=== PATIENT | female | born 1995 | race Caucasian/White ===

== ENCOUNTER 2016-05-05 11:13 | Emergency (ER) | payer OTHER ==
[2016-05-05 11:24] VITALS: O2SAT 99
[2016-05-05 11:52] LABS: Collection Type CCMS
[2016-05-05 11:53] LABS: COMPLETE URINE MICROSCOPIC? YES
[2016-05-05 12:03] LABS: BASOPHIL % 0.4 % (0.0-0.4); Eosinophil % 7.8 % (0.00-5.0); Granulocytes % 65.7 % (36.0-66.0); Lymphocytes % 18.1 % (24.0-44.0); Mean Cell Volume 84.9 fl (78-100); Mean Corpuscular Hemoglobin 28.4 pg (26-32); Mean Platelet Volume 9.7 fl (6-9.5); Platelet Count 247 K/mm3 (150-450); Red Blood Count 4.76 M/mm3 (4.1-5.4); Red Cell Distribution Width 13.8 % (11.5-14.0); White Blood Count 5.5 K/mm3 (4.0-10.5)
--- NOTE | 2016-05-05 12:22 | XRAY ---
Indication: Spotting and cramping. Two-dimensional transvaginal early OB ultrasound performed. Comparison: None for this . There is a single intrauterine gestational sac with presence of a single pole. The mean crown-rump length measures 1.02 cm corresponding to 7 weeks 1 day. heart rate is 124 bpm. No abnormal subchorionic fluid collection. Left and right ovaries unremarkable. No suspicious adnexal mass or free fluid. Impression: Single viable intrauterine measuring 7 weeks 1 day. Expected date confinement is December 21, 2016.
[2016-05-05 12:27] LABS: Bacteria FEW /HPF (NEGATIVE); Epithelial Cells FEW /HPF (FEW); Mucus MODERATE /HPF (NEGATIVE); WBC 0-2 /HPF (0-5)
[2016-05-05 12:40] LABS: ALBUMIN 3.6 g/dL (3.4-5.0); ALKALINE PHOSPHATASE 85 U/L (46-116); ANION GAP 13.7 MEQ/L (5-15); BILIRUBIN,TOTAL 0.3 mg/dL (0.2-1.0); BLOOD UREA NITROGEN 9 mg/dL (9-20); CHLORIDE 103 mEq/L (98-107); Carbon Dioxide 25.9 mEq/L (21-32); Glucose 113 MG/DL (70-110); HCG, Quantitative (Inhouse) 45406 IU/L (0-6); Potassium 3.4 mEq/L (3.5-5.1); SGOT/AST 32 U/L (15-37); SGPT/ALT 26 U/L (12-78); SODIUM 139 mEq/L (136-145); Total Protein 7.6 gm/dL (6.4-8.2)
[2016-05-05] MEDS ORDERED: Klor Con 10 MEQ PO ONE ×2 (12:51→12:53)
[2016-05-05] MEDS ORDERED: Macrobid 100MG Capsule PO ONE (12:52)
[2016-05-05] MEDS ORDERED: Macrobid 100MG Capsule ONE (12:54)
--- NOTE | 2016-05-05 12:58 | ERPHSYRPT ---
- History of Present Illness Time Seen by Provider: 05/05/16 11:15 Source: patient Exam Limitations: no limitations Patient Subjective Stated Complaint: cramping and vaginal bleeding Triage Nursing Assessment: pt has had vaginal cramping and bleeding since yeserday, previous miscarriage states she is 9 weeks Timing/Duration: yesterday Activites at Onset: none Quality: cramping Onset Location: suprapubic, abdominal pain Pain Radiation: periumbilical, suprapubic Severity of Pain-Max: moderate Severity of Pain-Current: moderate Prior abdominal problems: other (G) Modifying Factors: Improves With: nothing Associated Symptoms: other (vaginal spotting /bleeding on tissue wipe) Allergies/Adverse Reactions: Penicillins Allergy (Verified 04/27/15 13:39) Hx Tetanus, Diphtheria Vaccination/Date Given: Yes Hx Influenza Vaccination/Date Given: No Hx Pneumococcal Vaccination/Date Given: No - Review of Systems Constitutional: No Symptoms Eyes: No Symptoms Ears, Nose, & Throat: No Symptoms Respiratory: No Symptoms Cardiac: No Symptoms Abdominal/Gastrointestinal: Abdominal Pain Genitourinary Symptoms: Vaginal Bleeding Musculoskeletal: No Symptoms Skin: No Symptoms Neurological: No Symptoms Psychological: No Symptoms Endocrine: No Symptoms Hematologic/Lymphatic: No Symptoms Immunological/Allergic: No Symptoms - Past Medical History Pertinent Past Medical History: No Neurological History: Migraines ENT History: No Pertinent History Cardiac History: No Pertinent History Respiratory History: No Pertinent History Endocrine Medical History: No Pertinent History Musculoskeletal History: No Pertinent History GI Medical History: No Pertinent History History: No Pertinent History Psycho-Social History: Depression Female Reproductive Disorders: No Pertinent History Other Medical History: seasonal allergy - Past Surgical History Past Surgical History: Yes Neuro Surgical History: No Pertinent History Cardiac: No Pertinent History Respiratory: No Pertinent History Gastrointestinal: Cholecystectomy Genitourinary: No Pertinent History Musculoskeletal: No Pertinent History Female Surgical History: No Pertinent History - Social History Smoking Status: Never smoker How long have you smoked: 5 Exposure to second hand smoke: No Drug Use: none Patient Lives Alone: No - Female History Hx Last Menstrual Period: 03/06/16 - Nursing Vital Signs Nursing Vital Signs: Initial Vital Signs Temperature 99.1 F Temperature Source Oral Pulse Rate 101 Respiratory Rate 16 Blood Pressure 127/82 Pain Intensity 4 - Physical Exam General Appearance: mild distress Eye Exam: PERRL/EOMI, eyes nml inspection Ears, Nose, Throat Exam: normal ENT inspection, pharynx normal Neck Exam: normal inspection, non-tender, supple, full range of motion Respiratory Exam: normal breath sounds, lungs clear Cardiovascular Exam: regular rate/rhythm, normal heart sounds, normal peripheral pulses Gastrointestinal/Abdomen Exam: soft Pelvic Exam: deferred Back Exam: normal inspection, normal range of motion Extremity Exam: normal inspection, normal range of motion, pelvis stable Neurologic Exam: alert, oriented x 3, cooperative Skin Exam: normal color, warm, dry SpO2 Interpretation: normal SpO2: 99 Oxygen Delivery: Room Air - Course Nursing assessment & vital signs reviewed: Yes - Radiology Ultrasound Exam OB Ultrasound: discussed w/radiologist (7 week 1 day IUP with HR 126) Ordered Tests: Active Orders 24 hr Category Date Time Status IV Insertion STAT Care 05/05/16 11:27 Active OB <14 WKS 1ST GESTATION [US] Stat Exams 05/05/16 11:37 Completed CBC W DIFF Stat Lab 05/05/16 11:56 Completed CMP Stat Lab 05/05/16 11:56 Completed HCG, Quantitative (Inhouse) Stat Lab 05/05/16 11:56 Completed HCG,QUALITATIVE URINE Stat Lab 05/05/16 11:41 Completed UA W/ MICROSCOPIC Stat Lab 05/05/16 11:41 Completed Medication Summary Discontinued Medications Generic Name Dose Route Start Last Admin Trade Name Freq PRN Reason Stop Dose Admin Nitrofurantoin Macrocrystals 100 mg 05/05/16 12:52 Macrobid 100mg Capsule PO 05/05/16 12:53 STAT ONE Potassium Chloride 40 meq 05/05/16 12:51 Klor Con 10 Meq PO 05/05/16 12:52 STAT ONE Lab/Rad Data: Laboratory Result Diagrams 05/05/16 11:56 05/05/16 11:56 Laboratory Results 05/05/16 05/05/16 05/05/16 Range/Units 11:56 11:56 11:44 WBC 5.5 (4.0-10.5) K/mm3 RBC 4.76 (4.1-5.4) M/mm3 Hgb 13.5 (12.0-16.0) gm/dl Hct 40.4 (35-47) % MCV 84.9 (78-100) fl MCH 28.4 (26-32) pg MCHC 33.4 (32-36) g/dl RDW 13.8 (11.5-14.0) % Plt Count 247 (150-450) K/mm3 MPV 9.7 H (6-9.5) fl Gran % 65.7 (36.0-66.0) % Lymphocytes % 18.1 L (24.0-44.0) % Monocytes % 8.0 (0.0-12.0) % Eosinophils % 7.8 H (0.00-5.0) % Basophils % 0.4 (0.0-0.4) % Basophils # 0.02 (0-0.4) Sodium 139 (136-145) mEq/L Potassium 3.4 L (3.5-5.1) mEq/L Chloride 103 (98-107) mEq/L Carbon Dioxide 25.9 (21-32) mEq/L Anion Gap 13.7 (5-15) MEQ/L BUN 9 (9-20) mg/dL Creatinine 0.82 (0.55-1.30) mg/dl Estimated GFR > 60 ML/MIN Glucose 113 H (70-110) MG/DL Calcium 8.9 (8.5-10.1) mg/dL Total Bilirubin 0.3 (0.2-1.0) mg/dL AST 32 (15-37) U/L ALT 26 (12-78) U/L Alkaline Phosphatase 85 (46-116) U/L Serum Total Protein 7.6 (6.4-8.2) gm/dL Albumin 3.6 (3.4-5.0) g/dL Beta HCG, Quant 07555 H (0-6) IU/L Ur Collection Type Urine Color (YELLOW) Urine Appearance (CLEAR) Urine pH (5-6) Ur Specific [place] (1.005-1.025) Urine Protein (Negative) Urine Glucose (UA) (NEGATIVE) mg/dL Urine Ketones (NEGATIVE) Urine Nitrite (NEGATIVE) Urine Bilirubin (NEGATIVE) Urine Urobilinogen (0-1) mg/dL Urine WBC (Auto) (NEGATIVE) Urine RBC (Auto) (0-5) Frank/ul Urine Microscopic RBC (0-2) /HPF Urine Microscopic WBC (0-5) /HPF Ur Epithelial Cells (FEW) /HPF Urine Bacteria (NEGATIVE) /HPF Urine Mucus (NEGATIVE) /HPF Urine HCG, Qual (Negative) Specimen Received ABO Group O Rh Factor POSITIVE Antibody Screen NEGATIVE (NEGATIVE) 05/05/16 05/05/16 Range/Units 11:41 11:41 WBC (4.0-10.5) K/mm3 RBC (4.1-5.4) M/mm3 Hgb (12.0-16.0) gm/dl Hct (35-47) % MCV (78-100) fl MCH (26-32) pg MCHC (32-36) g/dl RDW (11.5-14.0) % Plt Count (150-450) K/mm3 MPV (6-9.5) fl Gran % (36.0-66.0) % Lymphocytes % (24.0-44.0) % Monocytes % (0.0-12.0) % Eosinophils % (0.00-5.0) % Basophils % (0.0-0.4) % Basophils # (0-0.4) Sodium (136-145) mEq/L Potassium (3.5-5.1) mEq/L Chloride (98-107) mEq/L Carbon Dioxide (21-32) mEq/L Anion Gap (5-15) MEQ/L BUN (9-20) mg/dL Creatinine (0.55-1.30) mg/dl Estimated GFR ML/MIN Glucose (70-110) MG/DL Calcium (8.5-10.1) mg/dL Total Bilirubin (0.2-1.0) mg/dL AST (15-37) U/L ALT (12-78) U/L Alkaline Phosphatase (46-116) U/L Serum Total Protein (6.4-8.2) gm/dL Albumin (3.4-5.0) g/dL Beta HCG, Quant (0-6) IU/L Ur Collection Type CCMS Urine Color YELLOW (YELLOW) Urine Appearance CLEAR (CLEAR) Urine pH 6.0 (5-6) Ur Specific [place] >=1.030 (1.005-1.025) Urine Protein 30 (Negative) Urine Glucose (UA) NEGATIVE (NEGATIVE) mg/dL Urine Ketones NEGATIVE (NEGATIVE) Urine Nitrite NEGATIVE (NEGATIVE) Urine Bilirubin SMALL (NEGATIVE) Urine Urobilinogen 0.2 (0-1) mg/dL Urine WBC (Auto) NEGATIVE (NEGATIVE) Urine RBC (Auto) MODERATE (0-5) Frank/ul Urine Microscopic RBC 2-5 (0-2) /HPF Urine Microscopic WBC 0-2 (0-5) /HPF Ur Epithelial Cells FEW (FEW) /HPF Urine Bacteria FEW (NEGATIVE) /HPF Urine Mucus MODERATE (NEGATIVE) /HPF Urine HCG, Qual POSITIVE (Negative) Specimen Received 1145 05/05/16 ABO Group Rh Factor Antibody Screen (NEGATIVE) - Progress Progress: improved Air Movement: good Blood Culture(s) Obtained: No Antibiotics given: Yes Counseled pt/family regarding: lab results, diagnosis, need for follow-up (OB 1 week), rad results - Departure Time of Disposition: 13:00 Departure Disposition: Home Clinical Impression: Threatened miscarriage Condition: Stable Critical Care Time: No
[2016-05-05 13:05] VITALS: BP 128/84; PULSE 96
== END 2016-05-05 13:11 | disposition home or self-care (01) ==
LOC: ED 11:13
DX: O20.0 Threatened abortion (principal)
CPT/HCPCS: 36000; 36415; 76801; 80053; 81000; 84702; 84703; 85025; 86850; 86900; 86901; 99283

== ENCOUNTER 2016-09-24 21:31 | Observation (INO) | payer OTHER ==
[2016-09-24 22:42] LABS: COMPLETE URINE MICROSCOPIC? YES; Collection Type CLEAN CATCH
[2016-09-24 22:43] LABS: Bacteria RARE /HPF (NEGATIVE); Epithelial Cells FEW /HPF (FEW); WBC 0-2 /HPF (0-5)
[2016-09-24] MEDS ORDERED: TYLENOL EXTRA STRENGTH 500 MG PO PRN (23:01)
[2016-09-24 23:32] LABS: BASOPHIL % 0.1 % (0.0-0.4); Eosinophil % 2.8 % (0.00-5.0); Lymphocytes % 17.2 % (24.0-44.0); Mean Cell Volume 87.9 fl (78-100); Mean Corpuscular Hemoglobin 29.2 pg (26-32); Mean Platelet Volume 9.8 fl (6-9.5); Monocytes % 5.9 % (0.0-12.0); Platelet Count 264 K/mm3 (150-450); Red Blood Count 3.97 M/mm3 (4.1-5.4); Red Cell Distribution Width 14.2 % (11.5-14.0); White Blood Count 9.7 K/mm3 (4.0-10.5)
[2016-09-24 23:57] LABS: ALBUMIN 2.7 g/dL (3.4-5.0); ALKALINE PHOSPHATASE 91 U/L (46-116); ANION GAP 11.7 MEQ/L (5-15); BLOOD UREA NITROGEN 9 mg/dL (9-20); CHLORIDE 105 mEq/L (98-107); Carbon Dioxide 25.9 mEq/L (21-32); Glucose 95 MG/DL (70-110); Potassium 3.8 mEq/L (3.5-5.1); SGOT/AST 16 U/L (15-37); SGPT/ALT 20 U/L (12-78); SODIUM 139 mEq/L (136-145); Total Protein 6.8 gm/dL (6.4-8.2)
[2016-09-25] MEDS ORDERED: SUBLIMAZE 100 MCG/2 ML IV PRN (00:09)
[2016-09-25] MEDS ORDERED: Zofran 4 MG/2 ML VIAL IV PRN (00:10)
[2016-09-25] MEDS ORDERED: Lactated Ringers 1,000 ML IV SCH (00:30)
--- NOTE | 2016-09-25 10:53 | XRAY ---
Indication: Right lower quadrant pain. 2-dimensional OB ultrasound performed. Comparison: July 29, 2016. Again there is a single viable intrauterine currently in cephalic presentation. heart rate 145 bpm. Normal three-vessel cord, cord insertion, and four-chamber heart previously documented. Visualized stomach, kidneys, and bladder are unremarkable. Placenta is again anterior without abruption/previa. BPD measures 6.91 cm corresponding to 27 weeks 5 days. HC measures 24.59 cm corresponding to 26 weeks 5 day. AC measures 23.66 cm corresponding to 28 weeks 0 days. FL measures 5.54 cm corresponding to 29 weeks 1 days. FLORIAN is 13.9 cm. Impression: Again single viable intrauterine with mean gestational age 27 weeks 6 days. Normal progression of . No new/acute findings.
--- NOTE | 2016-09-25 10:55 | XRAY ---
Indication: Right lower quadrant pain. Two-dimensional renal sonogram performed. Comparison: None Both kidneys are normal in reniform shape with normal color perfusion. Right kidney measures 10.8 x 5.4 x 5.0 cm and the left measures 11.9 x 3.8 x 5.8 cm. No suspicious solid/cystic mass or perinephric fluid. Cortical medullary differentiation maintained without cortical thinning. Images of the urinary bladder unremarkable. Bilateral ureteral jets documented. Impression: Negative renal sonogram.
[2016-09-25 12:11] VITALS: BP 126/56; PULSE 90
== END 2016-09-25 10:30 | disposition home or self-care (01) ==
LOC: OB 21:31 → UNDOADMOB 21:31
PROVIDERS: ADMIT Family Medicine; ATTEND Family Medicine
DX: Z34.82 Encounter for supervision of other normal pregnancy, second trimester (principal)
CPT/HCPCS: 36415; 76770; 76805; 80053; 80307; 81000; 85025; G0378; J3010; A9270-GY

== ENCOUNTER 2016-10-15 12:31 | Observation (INO) | payer OTHER ==
[2016-10-15 13:17] VITALS: BP 120/79; PULSE 107
== END 2016-10-15 14:30 | disposition home or self-care (01) ==
LOC: OB 12:31
PROVIDERS: ADMIT Family Medicine; ATTEND Family Medicine
DX: Z34.83 Encounter for supervision of other normal pregnancy, third trimester (principal)
CPT/HCPCS: 59025; G0378

== ENCOUNTER 2016-11-13 02:57 | Observation (INO) | payer OTHER ==
[2016-11-13 03:44] VITALS: BP 121/72; PULSE 100
[2016-11-13 03:45] VITALS: O2SAT 97
[2016-11-13 03:47] LABS: Bacteria FEW /HPF (NEGATIVE); Bilirubin NEGATIVE (NEGATIVE); Blood NEGATIVE Ery/ul (0-5); COMPLETE URINE MICROSCOPIC? YES; Collection Type CCMS; Epithelial Cells MODERATE /HPF (FEW); Glucose NEGATIVE (NEGATIVE); Leukocyte Esterase 1+ (NEGATIVE); WBC 0-2 /HPF (0-5)
== END 2016-11-13 04:55 | disposition home or self-care (01) ==
LOC: OB 02:57
PROVIDERS: ADMIT Family Medicine; ATTEND Family Medicine
DX: Z34.83 Encounter for supervision of other normal pregnancy, third trimester (principal)
CPT/HCPCS: 80307; 81000; G0378

== ENCOUNTER 2016-12-08 05:40 | Observation (INO) | payer OTHER ==
[2016-12-08 06:50] LABS: Bilirubin NEGATIVE (NEGATIVE); Blood NEGATIVE Ery/ul (0-5); COMPLETE URINE MICROSCOPIC? NO; Collection Type VOID; Glucose NEGATIVE (NEGATIVE); Leukocyte Esterase NEGATIVE (NEGATIVE)
[2016-12-08 08:32] VITALS: BP 117/64; PULSE 81
== END 2016-12-08 08:59 | disposition home or self-care (01) ==
LOC: OB 05:40 → UNDOADMOB 05:40 → UNDODISOB 08:59
PROVIDERS: ADMIT Family Medicine; ATTEND Family Medicine
DX: Z34.83 Encounter for supervision of other normal pregnancy, third trimester (principal)
CPT/HCPCS: 80307; 81002; G0378

== ENCOUNTER 2016-12-16 06:04 | Inpatient (IN) | payer OTHER ==
[2016-12-16] MEDS ORDERED: XYLOCAINE 1% HCL 20 ML MDV IJ PRN (08:24)
[2016-12-16 08:57] LABS: BASOPHIL % 0.2 % (0.0-0.4); Eosinophil % 2.1 % (0.00-5.0); Granulocytes % 77.8 % (36.0-66.0); Lymphocytes % 14.8 % (24.0-44.0); Mean Cell Volume 86.8 fl (78-100); Mean Corpuscular Hemoglobin 28.6 pg (26-32); Mean Platelet Volume 9.9 fl (6-9.5); Monocytes % 5.1 % (0.0-12.0); Platelet Count 266 K/mm3 (150-450); Red Blood Count 4.23 M/mm3 (4.1-5.4); Red Cell Distribution Width 14.4 % (11.5-14.0); White Blood Count 12.1 K/mm3 (4.0-10.5)
[2016-12-16] MEDS ORDERED: Lactated Ringers 1,000 ML IV ONE (13:02)
[2016-12-16] MEDS ORDERED: Ephedrine Sulfate 50 MG/ML IV PRN (13:02)
[2016-12-16] MEDS ORDERED: OB EPIDURAL NAROPIN/SUFENTANIL IN NACL EPIDURAL PRN (13:02)
[2016-12-16] MEDS: Lactated Ringers 1,000 ML IV SCH (14:41)
[2016-12-16] MEDS ORDERED: BRETHINE 1 MG/ML SQ PRN (15:41)
[2016-12-16] MEDS ORDERED: PITOCIN 30 UNITS/ LR 500 ML 500 ML IV SCH (16:00)
[2016-12-16] MEDS ORDERED: MOTRIN 400 MG PO PRN (22:58)
[2016-12-16] MEDS ORDERED: Ambien 10 MG PO PRN (22:58)
[2016-12-16] MEDS ORDERED: TUCKS TP PRN (22:58)
[2016-12-16] MEDS ORDERED: Dulcolax 10 MG SUPP PR PRN (22:58)
[2016-12-16] MEDS ORDERED: Dermoplast Spray TP PRN (22:58)
[2016-12-16] MEDS ORDERED: CORTISONE 1% CREAM TP PRN (22:58)
[2016-12-16] MEDS ORDERED: Anucort-HC SUPPOSITORY PR PRN (22:58)
[2016-12-16] MEDS ORDERED: Mylicon 80MG PO PRN (22:58)
[2016-12-16] MEDS ORDERED: LANSINOH 40 GM TOP PRN (22:58)
[2016-12-16] MEDS: TYLENOL EXTRA STRENGTH 500 MG PO PRN (23:15)
[2016-12-17 03:27] VITALS: O2SAT 99
[2016-12-17 04:28] LABS: BASOPHIL % 0.1 % (0.0-0.4); Eosinophil % 0.7 % (0.00-5.0); Lymphocytes % 9.8 % (24.0-44.0); Mean Cell Volume 87.8 fl (78-100); Mean Platelet Volume 9.8 fl (6-9.5); Monocytes % 4.4 % (0.0-12.0); Platelet Count 257 K/mm3 (150-450); Red Blood Count 3.93 M/mm3 (4.1-5.4); Red Cell Distribution Width 14.4 % (11.5-14.0); White Blood Count 14.4 K/mm3 (4.0-10.5)
[2016-12-17 04:29] LABS: Mean Corpuscular Hemoglobin 28.7 pg (26-32)
[2016-12-17] MEDS: TYLENOL EXTRA STRENGTH 500 MG PO PRN (04:33)
[2016-12-17] MEDS ORDERED: M-M-R II Vaccine With Diluent SQ ONE (10:00)
[2016-12-17] MEDS ORDERED: Adacel Vial IM ONE (10:00)
[2016-12-17] MEDS: Colace 100 MG PO SCH ×2 (10:43→21:02)
[2016-12-17] MEDS: FERREX 150 PO SCH (10:43)
[2016-12-17] MEDS: Lactated Ringers 1,000 ML IV SCH ×2 (10:58→10:59)
[2016-12-17] MEDS: PITOCIN 30 UNITS/ LR 500 ML 500 ML IV SCH (10:58)
[2016-12-17] MEDS: NORCO 5/325 MG PO PRN (20:15)
[2016-12-17] MEDS ORDERED: Pepcid 20 MG PO ONE (20:45)
[2016-12-18] MEDS: NORCO 5/325 MG PO PRN (02:16)
--- NOTE | 2016-12-18 07:50 | PCM.DS ---
Discharge Summary Date of Admission: 12/16/16 06:04 Admitting Physician: YFN VENEGAS Consults: Consults on Case 12/16/16 13:03 Notify Anesthesia Provider PRN Primary Care Provider: YFN VENEGAS Allergies Allergies Penicillins Allergy (Verified 11/13/16 03:23) [facility] Summary - Hospital Course Hospital Course: patient doing well at this time, mild lochia. pain controlled, tolerating po. had on 12/16, no complications. and well bonded with . - Vitals & Intake/Output Vital Signs: Vital Signs Temperature 97.8 F 12/17/16 20:00 Pulse Rate 84 12/17/16 20:00 Respiratory Rate 16 12/17/16 20:00 Blood Pressure 110/74 12/17/16 20:00 O2 Sat by Pulse Oximetry 99 12/16/16 23:04 Intake & Output: Intake & Output 12/15/16 12/16/16 12/17/16 12/18/16 11:59 11:59 11:59 11:59 Intake Total 500 1200 Output Total 400 Balance 100 1200 Weight 126.099 kg - Lab Result Diagrams: 12/17/16 04:23 Micro Results-Entire Visit: Microbiology 12/16/16 15:20 Urine Culture - Final Catherized NO GROWTH Discharge Exam General Appearance: no apparent distress, alert Skin Exam: normal color, warm, dry Respiratory Exam: normal breath sounds, lungs clear, No respiratory distress Cardiovascular Exam: regular rate/rhythm, normal heart sounds Gastrointestinal/Abdomen Exam: soft, No tenderness, No mass Extremity Exam: normal inspection, normal range of motion Final Diagnosis/Problem List - Final Discharge Diagnosis/Problem (1) Normal vaginal delivery Current Visit: Yes Status: Acute - Discharge Disposition: Home, Self-Care Condition: Stable Prescriptions: Continue Vits W-Ca,Fe,FA(<1Mg) [] 1 tab PO DAILY Acetaminophen [Tylenol] 650 mg PO Q4-6HPRN PRN PRN Reason: Pain Follow up with: YFN VENEGAS MD [Primary Care Provider] - 1 Week
[2016-12-18] MEDS: Colace 100 MG PO SCH (11:31)
[2016-12-18] MEDS: FERREX 150 PO SCH (11:31)
[2016-12-18] MEDS: TYLENOL EXTRA STRENGTH 500 MG PO PRN (12:59)
[2016-12-18 23:00] VITALS: BP 138/69; PULSE 83
== END 2016-12-18 23:59 | disposition home or self-care (01) | DRG 775 ==
LOC: MED SURG 06:04 → OBSVTOIN 06:04 → OB 12:18
PROVIDERS: ADMIT Family Medicine; ATTEND Family Medicine
PROC: 10E0XZZ Delivery of Products of Conception, External Approach (ICD-10-PCS; principal; 2016-12-16)
DX: O80 Encounter for full-term uncomplicated delivery (principal); Z3A.39 39 weeks gestation of pregnancy; Z37.0 Single live birth
CPT/HCPCS: 01967; 36415; 80307; 85025; 86850; 86900; 86901; 87086; 90707; 90715; 94799; G0378; J2590; J2795; A9270-GY

== ENCOUNTER 2017-05-19 20:30 | Emergency (ER) | payer OTHER ==
[2017-05-19 20:45] VITALS: O2SAT 98
--- NOTE | 2017-05-19 20:59 | ERPHSYRPT ---
- History of Present Illness Time Seen by Provider: 05/19/17 20:52 Source: patient Exam Limitations: no limitations Patient Subjective Stated Complaint: Has had pain for about 2 weeks from an old injury. wrote a script for her to get an xray here but the pain got worse in the past couple of hours. Triage Nursing Assessment: A&O x3, was wheeled in with a wheelchair. Can not put weight on left leg, BP 151/94, afebrile, pulses strong in bilateral dorsal pedis, states her pain is a 9/10. Physician History: Pt has been c/o left knee pain for about 2 weeks. She does not recall any injury , but the pain became more intense today, went to a walk in clinic and was referred for X ray. She came here. She denies direct trauma, or twisting, no fever, no chest pain, cough, SOB or calf pain, other complaints. Occurred: other (2 weeks ago) Quality: intermittent Severity of Pain-Max: severe Severity of Pain-Current: moderate Modifying Factors: Improves With: immobilization, movement Associated Symptoms: unable to bear weight Allergies/Adverse Reactions: Penicillins Allergy (Verified 11/13/16 03:23) Rash Home Medications: Vits W-Ca,Fe,FA(<1Mg) [] 1 tab PO DAILY 06/25/16 [History] Acetaminophen [Tylenol] 650 mg PO Q4-6HPRN PRN 10/15/16 [History] Hx Tetanus, Diphtheria Vaccination/Date Given: Yes Hx Influenza Vaccination/Date Given: Yes Hx Pneumococcal Vaccination/Date Given: No Immunizations Up to Date: Yes - Review of Systems Constitutional: No Symptoms Musculoskeletal: Joint Pain, No Deformity, No Fall All Other Systems: Reviewed and Negative - Past Medical History Pertinent Past Medical History: Yes Neurological History: Migraines ENT History: No Pertinent History Cardiac History: No Pertinent History Respiratory History: No Pertinent History Endocrine Medical History: No Pertinent History Musculoskeletal History: No Pertinent History GI Medical History: No Pertinent History History: No Pertinent History Psycho-Social History: Depression Female Reproductive Disorders: No Pertinent History Other Medical History: seasonal allergy - Past Surgical History Past Surgical History: Yes Neuro Surgical History: No Pertinent History Cardiac: No Pertinent History Respiratory: No Pertinent History Gastrointestinal: Cholecystectomy Genitourinary: No Pertinent History Musculoskeletal: No Pertinent History Female Surgical History: No Pertinent History - Social History Smoking Status: Current every day smoker How long have you smoked: 3 Exposure to second hand smoke: Yes Drug Use: none Patient Lives Alone: No (lives with spouse) - Female History Hx Last Menstrual Period: 05/16/2017 Hx Now: No - Nursing Vital Signs Nursing Vital Signs: Initial Vital Signs Temperature 97.9 F 05/19/17 20:32 Pulse Rate 102 H 05/19/17 20:32 Blood Pressure 151/94 05/19/17 20:32 O2 Sat by Pulse Oximetry 98 05/19/17 20:32 Pain Scale Pain Intensity 9 - Physical Exam General Appearance: no apparent distress Neck Exam: normal inspection, non-tender Cardiovascular/Respiratory Exam: chest non-tender, normal breath sounds Gastrointestinal/Abdominal Exam: non-tender, soft Back Exam: normal inspection Hips Exam: left: non-tender Knees Exam: left knee: normal inspection, no evidence of injury, pain, soft tissue tenderness (bent, difficulty extending due to pain, no severe swelling, effusion, bruising or laxity.) Ankle Exam: left ankle: non-tender Neuro/Tendon Exam: normal motor functions Mental Status Exam: alert, oriented x 3 Skin Exam: normal color, warm, dry SpO2 Interpretation: normal SpO2: 98 Oxygen Delivery: Room Air - Radiology Exams Knee X-ray Interpretation: Interpreted by me, Negative Ordered Tests: Active Orders 24 hr Category Date Time Status KNEE (MIN 4 VIEW) Stat Exams 05/19/17 Ordered - Progress Progress: unchanged Progress Note: 05/19/17 21:36 I explained X ray results and the nature of her problem, and the need for a follow up with Orthopedic surgeon, she and her mother understood, she will be discharged in immobilizer with crutches, and limited weight bearing, return if severe pain or swelling, discoloration, fever> 102 F1 05/19/17 21:42 Pt was given Ultram 50mg Po once here and Q6h PRN for pain #10 tablets, - Departure Time of Disposition: 21:37 Departure Disposition: Home Clinical Impression: Knee sprain Qualifiers: Encounter type: initial encounter Involved ligament of knee: unspecified ligament Laterality: left Qualified Code(s): S83.92XA - Sprain of unspecified site of left knee, initial encounter Condition: Stable Critical Care Time: No Referrals: VENEGAS,YFN WILLI, MD [Primary Care Provider] - Additional Instructions: Rest x 2-3 days with elevated leg, follow up with Orthopedic surgeon, return if severe pain, swelling, discoloration or fever> 102 F!
[2017-05-19] MEDS ORDERED: ULTRAM 50 MG PO ONE (21:35)
[2017-05-19] MEDS ORDERED: ULTRAM 50 MG ONE (21:36)
[2017-05-19 21:59] VITALS: BP 163/96; PULSE 84
--- NOTE | 2017-05-20 08:37 | XRAY ---
Indication: Pain. Comparison: April 27, 2015. 4 projections of the left knee demonstrate stable medial condyle osteochondral defect. There remains a well-circumscribed mobile discoid ossification in the lateral compartment now seen anteriorly. No new/acute bony, articular, or soft tissue abnormalities.
== END 2017-05-19 22:00 | disposition home or self-care (01) ==
LOC: ED 20:30
DX: S83.92XA Sprain of unspecified site of left knee, initial encounter (principal)
CPT/HCPCS: 73564; 99282; 99283; L1830; A9270-GY

== ENCOUNTER 2018-08-06 12:58 | Emergency (ER) | payer OTHER ==
[2018-08-06] MEDS ORDERED: Sodium Chloride 0.9% 1000 ML 1,000 ML IV STA (13:35)
[2018-08-06] MEDS ORDERED: Zofran 4 MG/2 ML VIAL IV ONE (13:35)
[2018-08-06] MEDS ORDERED: Pepcid 20 MG VIAL IV ONE (13:35)
--- NOTE | 2018-08-06 13:42 | ERPHSYRPT ---
- History of Present Illness Time Seen by Provider: 08/06/18 13:30 Historian: patient Exam Limitations: no limitations Physician History: Pt started c/o diffuse, upper abdominal pain, nausea, frequent vomiting and diarrhea 4 days ago. She states, she is dehydrated, unable to urinate today, denies vomiting blood or coffee ground material, no bloody or black stool, denies urinary complaints or vaginal discharge. Timing/Duration: day(s) (4) Activities at Onset: none Quality: cramping, sharpness Abdominal Pain Onset Location: epigastric, periumbilical Pain Radiation: no radiation Severity of Pain-Max: severe Severity of Pain-Current: severe Modifying Factors: Improves With: nothing Associated Symptoms: diarrhea, loss of appetite, nausea, vomiting Previous symptoms: no prior history Allergies/Adverse Reactions: Penicillins Allergy (Verified 11/13/16 03:23) Rash Home Medications: Vits W-Ca,Fe,FA(<1Mg) [] 1 tab PO DAILY 06/25/16 [History] Acetaminophen [Tylenol] 650 mg PO Q4-6HPRN PRN 10/15/16 [History] Hx Tetanus, Diphtheria Vaccination/Date Given: Yes Hx Influenza Vaccination/Date Given: Yes Hx Pneumococcal Vaccination/Date Given: No - Review of Systems Constitutional: Weakness Eyes: No Symptoms Ears, Nose, & Throat: No Symptoms Respiratory: No Symptoms Cardiac: No Symptoms Abdominal/Gastrointestinal: Abdominal Pain, Nausea, Vomiting, Diarrhea, No Hematemesis, No Hematochezia Genitourinary Symptoms: No Symptoms Musculoskeletal: No Symptoms Skin: No Symptoms Neurological: No Symptoms All Other Systems: Reviewed and Negative - Past Medical History Pertinent Past Medical History: Yes Neurological History: Migraines ENT History: No Pertinent History Cardiac History: No Pertinent History Respiratory History: No Pertinent History Endocrine Medical History: No Pertinent History Musculoskeletal History: No Pertinent History GI Medical History: No Pertinent History History: No Pertinent History Psycho-Social History: Depression Female Reproductive Disorders: No Pertinent History Other Medical History: seasonal allergy - Past Surgical History Past Surgical History: Yes Neuro Surgical History: No Pertinent History Cardiac: No Pertinent History Respiratory: No Pertinent History Gastrointestinal: Cholecystectomy Genitourinary: No Pertinent History Musculoskeletal: No Pertinent History Female Surgical History: No Pertinent History - Social History Smoking Status: Current every day smoker How long have you smoked: 3 Exposure to second hand smoke: Yes Drug Use: none Patient Lives Alone: No (lives with spouse) - Nursing Vital Signs Nursing Vital Signs: Initial Vital Signs Temperature 99 F 08/06/18 13:41 Pulse Rate 119 H 08/06/18 13:41 Respiratory Rate 18 08/06/18 13:41 Blood Pressure 155/104 08/06/18 13:41 O2 Sat by Pulse Oximetry 99 08/06/18 13:41 Pain Scale Pain Intensity 4 - Physical Exam General Appearance: no apparent distress Eye Exam: eyes nml inspection Ears, Nose, Throat Exam: normal ENT inspection, pharynx normal, moist mucous membranes Neck Exam: normal inspection, non-tender, supple, No JVD Respiratory Exam: normal breath sounds, lungs clear, airway intact Cardiovascular Exam: regular rate/rhythm, normal heart sounds, normal peripheral pulses, capillary refill <2 sec, No murmur Gastrointestinal/Abdomen Exam: soft, normal bowel sounds, tenderness (diffuse, upper abdominal), No distention, No mass, No guarding, No ecchymosis, No rebound Back Exam: normal inspection, CVA tenderness (left) Extremity Exam: normal inspection, No calf tenderness Neurologic Exam: alert, oriented x 3, cooperative, normal mood/affect Skin Exam: normal color, warm, dry, No rash, No petechiae Lymphatic Exam: No adenopathy SpO2 Interpretation: normal O2 Delivery: Room Air - Course Nursing assessment & vital signs reviewed: Yes - CT Exams Abdomen/Pelvis CT Interpretation: Negative, Normal Appendix, Other (mesenteric adenitis) Ordered Tests: Active Orders 24 hr Category Date Time Status EKG-ER Only STAT Care 08/06/18 13:35 Active IV Insertion STAT Care 08/06/18 13:35 Active ABDOMEN AND PELVIS W/0 CONTRAS [CT] Stat Exams 08/06/18 13:37 Taken CULTURE,URINE Stat Lab 08/06/18 14:40 Received HCG,QUALITATIVE URINE Routine Lab 08/06/18 14:45 Completed TROPONIN Q3H Lab 08/07/18 01:45 Ordered UA W/RFX UR CULTURE Stat Lab 08/06/18 14:40 Completed Urine Triage Profile Stat Lab 08/06/18 14:40 Completed Medication Summary Discontinued Medications Generic Name Dose Route Start Last Admin Trade Name Freq PRN Reason Stop Dose Admin Al Hydrox/Mg Hydrox/Simethicone Confirm 08/06/18 16:30 Maalox Es 30 Ml Unit Dose Administered 08/06/18 16:31 Dose 30 ml .ROUTE .STK-MED ONE Famotidine 20 mg 08/06/18 13:35 Pepcid 20 Mg Vial IV 08/06/18 13:36 STAT ONE Sodium Chloride 1,000 mls @ 999 mls/hr 08/06/18 13:35 Sodium Chloride 0.9% 1000 Ml IV 08/06/18 14:35 .Q1H1M STA Lidocaine HCl Confirm 08/06/18 16:29 Xylocaine Hcl Viscous * Administered 08/06/18 16:30 Dose 15 ml .ROUTE .STK-MED ONE Magnesium Hydroxide 45 ml 08/06/18 16:29 08/06/18 16:34 Gi Cocktail 45 Ml (Maalox/Lidocaine) PO 08/06/18 16:30 45 ml STAT ONE Administration Ondansetron HCl 4 mg 08/06/18 13:35 Zofran 4 Mg/2 Ml Vial IV 08/06/18 13:36 STAT ONE Ondansetron HCl 4 mg 08/06/18 14:06 08/06/18 14:28 Zofran Odt 4 Mg PO 08/06/18 14:07 4 mg STAT ONE Administration Ondansetron HCl Confirm 08/06/18 14:06 Zofran Odt 4 Mg Administered 08/06/18 14:07 Dose 4 mg .ROUTE .STK-MED ONE Ondansetron HCl 4 mg 08/06/18 16:38 Zofran Odt 4 Mg PO 08/06/18 16:39 STAT ONE Lab/Rad Data: Laboratory Results 08/06/18 08/06/18 08/06/18 Range/Units 14:45 14:40 14:40 Urine Color (YELLOW) Urine Appearance (CLEAR) Urine pH (5-6) Ur Specific [place] (1.005-1.025) Urine Protein (Negative) Urine Ketones (NEGATIVE) Urine Blood (0-5) Frank/ul Urine Nitrite (NEGATIVE) Urine Bilirubin (NEGATIVE) Urine Urobilinogen (0-1) mg/dL Ur Leukocyte Esterase (NEGATIVE) Urine WBC (Auto) (0-5) /HPF Urine RBC (Auto) (0-2) /HPF U Hyaline Cast (Auto) (0-2) /LPF U Epithel Cells (Auto) (FEW) /HPF Urine Bacteria (Auto) (NEGATIVE) /HPF Unidentified Crystals (NEGATIVE) /HPF Urine Mucus (Auto) (NEGATIVE) /HPF Urine Culture Reflexed (NO) Urine Glucose (NEGATIVE) mg/dL Urine HCG, Qual NEGATIVE (Negative) Urine Opiates Level NEGATIVE (NEGATIVE) Ur Methadone NEGATIVE (NEGATIVE) Urine Barbiturates NEGATIVE (NEGATIVE) Ur Phencyclidine (PCP) NEGATIVE (NEGATIVE) Urine Amphetamine NEGATIVE (NEGATIVE) U Benzodiazepine Level NEGATIVE (NEGATIVE) Urine Cocaine NEGATIVE (NEGATIVE) Urine Marijuana (THC) NEGATIVE (NEGATIVE) Influenza Type A Ag NEGATIVE (NEGATIVE) Influenza Type B Ag NEGATIVE (NEGATIVE) RSV (PCR) NEGATIVE (Negative) 08/06/18 Range/Units 14:40 Urine Color RELL (YELLOW) Urine Appearance CLOUDY (CLEAR) Urine pH 6.0 (5-6) Ur Specific [place] 1.026 (1.005-1.025) Urine Protein 100 (Negative) Urine Ketones TRACE (NEGATIVE) Urine Blood LARGE (0-5) Frank/ul Urine Nitrite NEGATIVE (NEGATIVE) Urine Bilirubin NEGATIVE (NEGATIVE) Urine Urobilinogen 2 (0-1) mg/dL Ur Leukocyte Esterase NEGATIVE (NEGATIVE) Urine WBC (Auto) 6-10 (0-5) /HPF Urine RBC (Auto) 11-15 (0-2) /HPF U Hyaline Cast (Auto) 11-25 (0-2) /LPF U Epithel Cells (Auto) RARE (FEW) /HPF Urine Bacteria (Auto) MODERATE (NEGATIVE) /HPF Unidentified Crystals 2-5 (NEGATIVE) /HPF Urine Mucus (Auto) MANY (NEGATIVE) /HPF Urine Culture Reflexed YES (NO) Urine Glucose NEGATIVE (NEGATIVE) mg/dL Urine HCG, Qual (Negative) Urine Opiates Level (NEGATIVE) Ur Methadone (NEGATIVE) Urine Barbiturates (NEGATIVE) Ur Phencyclidine (PCP) (NEGATIVE) Urine Amphetamine (NEGATIVE) U Benzodiazepine Level (NEGATIVE) Urine Cocaine (NEGATIVE) Urine Marijuana (THC) (NEGATIVE) Influenza Type A Ag (NEGATIVE) Influenza Type B Ag (NEGATIVE) RSV (PCR) (Negative) - Progress Progress: improved Progress Note: 08/06/18 16:34 Pt was given SL Zofran, did not vomit, able to tolerate PO fluids, afebrile, denies severe pain, she was given GI cocktail as well. We attempted iv access on her repeatedly, unsuccessfully. I explained her the risks and benefits of a central line, she states that she did not vomit today, and had 5 episodes of diarrhea, she has been stable. She refused further attempts of iv access, or central line, she is going home to rest x 2-3 days, drink plenty of fluids and follow up with her physician next week. She was given Zofran ODT to take home. Counseled pt/family regarding: lab results, diagnosis, need for follow-up, rad results - Departure Departure Disposition: Home Clinical Impression: Gastroenteritis Condition: Stable Critical Care Time: No Referrals: YFN VENEGAS MD [Primary Care Provider] - Instructions: Vomiting -- Adult, Viral Gastroenteritis, Adult (DC) Additional Instructions: Rest x 2-3 days, drink plenty of fluids and follow up with your physician next week, return if severe pain, vomiting or fever> 102 F! Prescriptions: Ondansetron ODT 4 MG [Zofran Odt 4 mg] 4 mg PO Q6H PRN PRN #10 tab.rapdis PRN Reason: Nausea/Vomiting
[2018-08-06] MEDS ORDERED: ZOFRAN ODT 4 MG ONE ×2 (14:06→17:38)
[2018-08-06] MEDS ORDERED: ZOFRAN ODT 4 MG PO ONE ×2 (14:06→16:38)
[2018-08-06 14:57] LABS: Appearance CLOUDY (CLEAR); Bacteria MODERATE /HPF (NEGATIVE); Bilirubin NEGATIVE (NEGATIVE); Blood LARGE Ery/ul (0-5); Epithelial Cells RARE /HPF (FEW); Glucose NEGATIVE (NEGATIVE); Ketones TRACE (NEGATIVE); Leukocyte Esterase NEGATIVE (NEGATIVE); Mucus MANY /HPF (NEGATIVE); Nitrite NEGATIVE (NEGATIVE); Protein,Urine Dip 100 (Negative); Specific Gravity 1.026 (1.005-1.025); Urobilinogen 2 mg/dL (0-1)
[2018-08-06 15:25] LABS: Amphetamine,Urine NEGATIVE (NEGATIVE); Barbiturate,Urine NEGATIVE (NEGATIVE); Benzodiazepine,Urine NEGATIVE (NEGATIVE); Cocaine,Urine NEGATIVE (NEGATIVE); Methadone,Urine NEGATIVE (NEGATIVE); Opiate,Urine NEGATIVE (NEGATIVE); PCP,Urine NEGATIVE (NEGATIVE); THC,Urine NEGATIVE (NEGATIVE)
[2018-08-06 15:40] LABS: INFLUENZA A NEGATIVE (NEGATIVE); INFLUENZA B NEGATIVE (NEGATIVE); RESPIRATORY SYNCTIAL VIRUS NEGATIVE (Negative)
[2018-08-06] MEDS ORDERED: GI COCKTAIL 45 ML (Maalox/Lidocaine) PO ONE (16:29)
[2018-08-06] MEDS ORDERED: XYLOCAINE HCl Viscous ONE (16:29)
[2018-08-06] MEDS ORDERED: MAALOX ES 30 ML UNIT DOSE ONE (16:30)
[2018-08-06 17:40] VITALS: BP 146/99; PULSE 87; O2SAT 99
--- NOTE | 2018-08-06 19:38 | XRAY ---
Indication: Abdomen pain. Nausea and vomiting. Multiple contiguous axial images obtained through the abdomen and pelvis without contrast as ordered. Comparison: July 06, 2011. Lung bases negative for infiltrate or effusion. Heart is not enlarged. Noncontrasted stomach and bowel loops appear nonobstructed. Normal appendix. Again tiny scattered mesenteric nodes, possible adenitis. Tiny cul-de-sac fluid presumed physiologic from rupture/leaking cyst. No walled off fluid collection or free air. Again splenomegaly today measuring 16 cm in greatest axial dimension. There is been interval cholecystectomy. Mild diffuse fatty liver. Remaining liver, pancreas, spleen, adrenal glands, kidneys, ureters, bladder, uterus, and aorta appear unremarkable for noncontrast exam. Osseous structures intact. New small fatty umbilical hernia. Impression: 1. Again tiny scattered mesenteric nodes, possible adenitis. 2. Continue splenomegaly. 3. Fatty liver. 4. Tiny cul-de-sac fluid presumed physiologic from rupture/leaking cyst. 5. New small fatty umbilical hernia Comment: Preliminary interpretation was made by C. No discrepancy. CTDI 28.13
== END 2018-08-06 17:45 | disposition home or self-care (01) ==
LOC: ED 12:58
DX: K52.9 Noninfective gastroenteritis and colitis, unspecified (principal)
CPT/HCPCS: 74176; 80307; 81001; 84703; 87086; 87631; 99284; Q0162; A9270-GY

== ENCOUNTER 2019-03-06 12:03 | Observation (INO) | payer OTHER ==
--- NOTE | 2019-03-06 13:13 | XRAY ---
Indication: Elevated low-pressure. Ultrasound biophysical profile study was performed. Comparison: None There is a single intrauterine with heart rate 139 BPM. Four-quadrant FLORIAN is 10.6 cm. 0 points for breathing movements. 2 points given for movements, tone, and qualitative amniotic fluid volume. Impression: Total biophysical profile score is 6 out of 8.
[2019-03-06 13:37] LABS: Absolute Neutrophil Ct (ANC) 6.93 (1.4-6.9); BASOPHIL % 0.2 % (0.0-0.4); Basophil (Absolute #) 0.02 (0-0.4); Eosinophil % 1.5 % (0.00-5.0); Eosinophil (Absolute #) 0.13 (0-0.5); Hematocrit 38.3 % (35-47); Hemoglobin 13.1 gm/dl (12.0-16.0); Lymphocyte (Absolute #) 1.42 (1.0-4.6); Lymphocytes % 15.8 % (24.0-44.0); Mean Cell Volume 87.2 fl (78-100); Mean Corpuscular Hemoglobin 29.8 pg (26-32); Mean Corpuscular Hgb Concent. 34.2 g/dl (32-36); Mean Platelet Volume 10.3 fl (6-9.5); Monocyte (Absolute #) 0.46 (0.0-1.3); Monocytes % 5.1 % (0.0-12.0); Neutrophil % 77.4 % (36.0-66.0); Platelet Count 250 K/mm3 (150-450); Red Blood Count 4.39 M/mm3 (4.1-5.4); Red Cell Distribution Width 14.8 % (11.5-14.0)
[2019-03-06] MEDS ORDERED: APRESOLINE 20 MG/ML INJ IV ONE (13:37)
[2019-03-06 13:54] LABS: ALBUMIN 3.5 g/dL (3.5-5.0); ALKALINE PHOSPHATASE 103 U/L (38-126); ANION GAP 12.8 MEQ/L (5-15); BLOOD UREA NITROGEN 11 mg/dL (7-17); CHLORIDE 108 mmol/L (98-107); Calcium 9.9 mg/dL (8.4-10.2); Carbon Dioxide 24 mmol/L (22-30); Glucose 99 mg/dL (74-106); Potassium 4.2 mmol/L (3.5-5.1); SGOT/AST 25 U/L (14-36); SGPT/ALT 14 U/L (0-35); SODIUM 140 mmol/L (137-145); Total Protein 7.1 g/dL (6.3-8.2); Uric Acid 5.4 mg/dL (2.6-6.0)
[2019-03-06 14:27] LABS: Amphetamine,Urine NEGATIVE (NEGATIVE); Barbiturate,Urine NEGATIVE (NEGATIVE); Benzodiazepine,Urine NEGATIVE (NEGATIVE); Cocaine,Urine NEGATIVE (NEGATIVE); Methadone,Urine NEGATIVE (NEGATIVE); Opiate,Urine NEGATIVE (NEGATIVE); PCP,Urine NEGATIVE (NEGATIVE); THC,Urine NEGATIVE (NEGATIVE)
[2019-03-06] MEDS: Trandate 100 MG PO SCH ×2 (15:22→21:53)
[2019-03-06] MEDS ORDERED: APRESOLINE 20 MG/ML INJ IV PRN (16:43)
[2019-03-06] MEDS: TYLENOL 325 MG PO PRN ×2 (17:35→20:54)
[2019-03-07] MEDS: TYLENOL 325 MG PO PRN ×5 (01:05→17:12)
[2019-03-07] MEDS: Zofran 4 MG/2 ML VIAL IV PRN ×3 (01:25→12:52)
[2019-03-07] MEDS ORDERED: APRESOLINE 20 MG/ML INJ IV ONE (08:16)
--- NOTE | 2019-03-07 08:17 | PCM.NOTE ---
Date and Time: 03/07/19806 Subjective Assessment: Pt is 23 yo at 30+ wks, pt of Dr. Barney, here for hypertension in . Had BP in office > 160 systolic, had BP in LR > 180 systolic. Was given alpresoline IV several times and started on labetalol 100mg po BID. Overnight, her BP at 1946 was 163/113. After that BP slowly decreased to 130s systolic. Pt is having a migraine this morning, states it is just like her usual migraine , 2-3. No visual changes. Good movement. FHT have been wnl, documenting q4h. - Review of Systems Constitutional: No Fever Abdominal/Gastrointestinal: Nausea Neurological: Headache Objective Exam General Appearance: no apparent distress, alert, obese Neurologic Exam: oriented x 3, cooperative, other (patellar reflexes negligible bilat. No clonus bilat.) Skin Exam: normal color, warm, dry, No rash Ears, Nose, Throat Exam: moist mucous membranes Neck Exam: normal inspection Respiratory Exam: normal breath sounds, lungs clear, No crackles/rales, No rhonchi, No wheezing Cardiovascular Exam: regular rate/rhythm, normal heart sounds, No murmur Gastrointestinal/Abdomen Exam: soft, normal bowel sounds, other (gravid, nttp) Extremity Exam: pedal edema, other (no pretibial pitting edema) OBJECTIVE DATA Vital Signs: Vital Signs - 24 hr Temp Pulse Resp BP BP 03/07/19 04:20 97.8 F 99 H 134/83 03/07/19 00:00 97.6 F 99 H 129/84 03/06/19 21:00 98.1 F 103 H 154/94 03/06/19 16:00 140/80 03/06/19 13:53 98 F 20 184/118 Pain Assessment - Last Documented Pain Intensity 5 Pain Scale Used 0-10 Pain Scale Intake and Output: Intake & Output 03/04/19 03/05/19 03/06/19 03/07/19 12:59 11:59 11:59 11:59 Intake Total 1800 Output Total 600 Balance 1200 Weight 325 kg Lab Results: Lab Results-Last 24 Hours 03/06/19 03/06/19 03/06/19 Range/Units 12:13 13:35 13:35 WBC 9.0 (4.0-10.5) K/mm3 RBC 4.39 (4.1-5.4) M/mm3 Hgb 13.1 (12.0-16.0) gm/dl Hct 38.3 (35-47) % MCV 87.2 (78-100) fl MCH 29.8 (26-32) pg MCHC 34.2 (32-36) g/dl RDW 14.8 H (11.5-14.0) % Plt Count 250 (150-450) K/mm3 MPV 10.3 H (6-9.5) fl Gran % 77.4 H (36.0-66.0) % Eos # (Auto) 0.13 (0-0.5) Absolute Lymphs (auto) 1.42 (1.0-4.6) Absolute Monos (auto) 0.46 (0.0-1.3) Lymphocytes % 15.8 L (24.0-44.0) % Monocytes % 5.1 (0.0-12.0) % Eosinophils % 1.5 (0.00-5.0) % Basophils % 0.2 (0.0-0.4) % Absolute Granulocytes 6.93 H (1.4-6.9) Basophils # 0.02 (0-0.4) Sodium 140 (137-145) mmol/L Potassium 4.2 (3.5-5.1) mmol/L Chloride 108 H (98-107) mmol/L Carbon Dioxide 24 (22-30) mmol/L Anion Gap 12.8 (5-15) MEQ/L BUN 11 (7-17) mg/dL Creatinine 0.50 L (0.52-1.04) mg/dL Estimated GFR > 60.0 ML/MIN Glucose 99 (74-106) mg/dL Uric Acid 5.4 (2.6-6.0) mg/dL Calcium 9.9 (8.4-10.2) mg/dL Total Bilirubin 0.30 (0.2-1.3) mg/dL AST 25 (14-36) U/L ALT 14 (0-35) U/L Alkaline Phosphatase 103 (38-126) U/L Serum Total Protein 7.1 (6.3-8.2) g/dL Albumin 3.5 (3.5-5.0) g/dL Urine Opiates Level NEGATIVE (NEGATIVE) Ur Methadone NEGATIVE (NEGATIVE) Urine Barbiturates NEGATIVE (NEGATIVE) Ur Phencyclidine (PCP) NEGATIVE (NEGATIVE) Urine Amphetamine NEGATIVE (NEGATIVE) U Benzodiazepine Level NEGATIVE (NEGATIVE) Urine Cocaine NEGATIVE (NEGATIVE) Urine Marijuana (THC) NEGATIVE (NEGATIVE) Radiology Exams: Radiology Procedures Category Date Time Status OB BIOPHYSICAL W/O NON STRESS [US] Urgent Exams 03/06/19 13:04 Completed Assessment/Plan (1) induced hypertension Current Visit: Yes Status: Acute Qualifiers: Trimester: third trimester Qualified Code(s): O13.3 - Gestational [ -induced] hypertension without significant proteinuria, third trimester Assessment & Plan: Her uric acid, cmp, and cbc were fine. Twenty four hour urine is pending. Will observe her today, if BP all wnl may be able to d/c home after supper. Will discuss with RN at that time. Code(s): O13.9 - GESTATIONAL HTN W/O SIGNIFICANT PROTEINURIA, UNSP TRIMESTER (2) Current Visit: Yes Status: Acute Qualifiers: Weeks of gestation: 30 weeks Qualified Code(s): Z3A.30 - 30 weeks gestation of Assessment & Plan: Baby stable. U/s done yesterday 10/08 (off for no breathing movements). FLORIAN 10.6. Code(s): Z34.90 - ENCNTR FOR SUPRVSN OF NORMAL , UNSP, UNSP TRIMESTER
[2019-03-07] MEDS: Trandate 100 MG PO SCH (08:20)
[2019-03-07] MEDS ORDERED: Adalat CC 30 MG TABLET PO SCH (10:00)
[2019-03-07 15:21] LABS: 24 HR TOT. PROTEIN CALCULATION 1.177 GM/DAY (0.04-0.15)
[2019-03-07 17:05] VITALS: PULSE 100
[2019-03-07 17:06] VITALS: BP 176/104
[2019-03-07] MEDS ORDERED: Lactated Ringers 1,000 ML IV SCH (17:30)
[2019-03-07] MEDS ORDERED: Magnesium Sulfate 40 Gm/1000 Ml H2O Premix*** 1,000 ML IV SCH (17:30)
[2019-03-07] MEDS ORDERED: Celestone Soluspan 6MG/ML IM ONE (17:37)
[2019-03-07] MEDS: TRANDATE 100MG/20 ML MDV IV PRN ×2 (17:46→18:10)
--- NOTE | 2019-03-07 17:57 | PCM.CONS ---
History of Present Illness - Reason for Consult Chief Complaint: ELEVATED BP Date of Consultation Date: 03/07/19 Reason for Consult: elevated blood pressure Requesting Provider: YFN VENEGAS dr Consulting Provider: OMAYRA BUTLER DO History of Present Illness: is a 23 year old female iup 30 5/7 wks gestation with current hx of elevated blood pressure noted her office appt yesterday. pt was sent to labor and delivery for evaluation and was noted having elevated proteinuria with 1.17gm protein in 24 hrs. pt also noted having elevated blood pressure throughout the night yesterday and into today and was given several doses blood pressure medication. currently blood pressure noted being 170/110 and does complain of headache. she does give a hx of migraines in the past. denies ever having elevated bp during her previous pregnancies and states having elevated bp only yesterday in the office. denies visual disturbance or right upper quadrant pain. - Review of Systems Eyes: Eye Pain, Photophobia Respiratory: No Cough, No Short Of Breath Cardiac: No Chest Pain, No Edema, No Syncope Abdominal/Gastrointestinal: No Abdominal Pain, No Nausea, No Vomiting, No Diarrhea Genitourinary Symptoms: No Dysuria Musculoskeletal: No Back Pain, No Neck Pain Skin: No Rash Neurological: Headache Psychological: No Symptoms Endocrine: No Symptoms Hematologic/Lymphatic: No Symptoms Immunological/Allergic: No Symptoms Medications & Allergies Home Medications: Home Medication List Vits W-Ca,Fe,FA(<1Mg) [] 1 tab PO DAILY 06/25/16 [History Confirmed 12/16/16] Acetaminophen [Tylenol] 650 mg PO Q4-6HPRN PRN 10/15/16 [History Confirmed 12/16] Ondansetron ODT 4 MG [Zofran Odt 4 mg] 4 mg PO Q6H PRN PRN #10 tab.rapdis 08/06/18 [Rx] Allergies/Adverse Reactions: Allergies Allergy/AdvReac Type Severity Reaction Status Date / Time Penicillins Allergy Rash Verified 11/13/16 03:23 - Past Medical History Past Medical History: Yes Neurological History: Migraines ENT History: No Pertinent History Cardiac History: No Pertinent History Respiratory History: No Pertinent History Endocrine Medical History: No Pertinent History Musculoskelatal History: No Pertinent History GI Medical History: No Pertinent History History: No Pertinent History Pyscho-Social History: Depression Reproductive Disorders: No Pertinent History Comment: seasonal allergy - Female History Are you now?: Yes - Past Surgical History Past Surgical History: Yes Neuro Surgical History: No Pertinent History Cardiac History: No Pertinent History Respiratory Surgery: No Pertinent History GI Surgical History: Cholecystectomy Genitourinary Surgical Hx: No Pertinent History Musculskeletal Surgical Hx: No Pertinent History Female Surgical History: No Pertinent History - Social History Smoking Status: Former smoker How long have you smoked: 3 Exposure to second hand smoke: Yes Alcohol: None Drug Use: none - Physical Exam Vital Signs: Vital Signs - 24 hr Temp Pulse Resp BP 03/07/19 17:05 100 H 20 176/104 03/07/19 17:04 100 H 20 170/110 03/07/19 13:00 18 140/100 03/07/19 11:53 18 150/96 03/07/19 10:00 102 H 20 140/102 03/07/19 08:00 96 H 20 160/118 03/07/19 04:20 97.8 F 99 H 134/83 03/07/19 00:00 97.6 F 99 H 129/84 03/06/19 21:00 98.1 F 103 H 154/94 General Appearance: no apparent distress, alert Neurologic Exam: alert, oriented x 3, cooperative, normal mood/affect, nml cerebellar function, nml station & gait, sensation nml, No motor deficits Extremity Exam: pedal edema Skin Exam: normal color, warm, dry, No rash Results - Labs Lab/Micro Results: Lab Results-Last 24 Hours 03/06/19 Range/Units 12:56 Ur 24 Hour Volume 1150 ML Ur Total Protein 24 Hr 107 (42-225) mg/dL U Tot Protein 24h, Calc 1.177 H (0.04-0.15) GM/DAY - Radiology Impressions Radiology Exams & Impressions: Radiology Procedures Category Date Time Status OB BIOPHYSICAL W/O NON STRESS [US] Urgent Exams 03/06/19 13:04 Completed Assessment/Plan (1) Pre-eclampsia affecting , antepartum Current Visit: Yes Status: Acute Onset Date: ~03/06/19 Assessment & Plan: WILL GIVE IV LABETOLOL AT THIS TIME TO REDUCE BP <160/100 Q 20 MINUTES TILL TRANSFERRED TO [facility] WILL START MAG SULFATE 4GM BOLUS THEN 2GM/HR AT THIS TIME WILL GIVE CELESTONE 12MG IM AT THIS TIME PRIOR TO TRANSFER Code(s): O14.90 - UNSPECIFIED PRE-ECLAMPSIA, UNSPECIFIED TRIMESTER
[2019-03-07 18:22] LABS: Hematocrit 37.2 % (35-47); Hemoglobin 12.7 gm/dl (12.0-16.0); Mean Cell Volume 88.6 fl (78-100); Mean Corpuscular Hemoglobin 30.2 pg (26-32); Mean Corpuscular Hgb Concent. 34.1 g/dl (32-36); Platelet Count 260 K/mm3 (150-450); Red Cell Distribution Width 15.2 % (11.5-14.0); White Blood Count 10.9 K/mm3 (4.0-10.5)
[2019-03-07 18:30] LABS: INR 0.88 (0.8-3.0); PROTIME 9.9 SECONDS (9.95-12.35)
[2019-03-07 18:32] LABS: PTT 19.4 SECONDS (25.3-37.0)
[2019-03-07 18:34] LABS: ALBUMIN 3.4 g/dL (3.5-5.0); ALKALINE PHOSPHATASE 105 U/L (38-126); ANION GAP 10.7 MEQ/L (5-15); BLOOD UREA NITROGEN 12 mg/dL (7-17); CHLORIDE 107 mmol/L (98-107); Calcium 9.1 mg/dL (8.4-10.2); Carbon Dioxide 24 mmol/L (22-30); Creatinine 1 0.48 mg/dL (0.52-1.04); Glucose 102 mg/dL (74-106); Potassium 4.3 mmol/L (3.5-5.1); SGOT/AST 22 U/L (14-36); SGPT/ALT 13 U/L (0-35); SODIUM 137 mmol/L (137-145); Total Protein 6.9 g/dL (6.3-8.2)
[2019-03-07 18:46] LABS: Appearance CLOUDY (CLEAR); Bacteria RARE /HPF (NEGATIVE); Bilirubin NEGATIVE (NEGATIVE); Blood NEGATIVE Ery/ul (0-5); Glucose NEGATIVE (NEGATIVE); Ketones NEGATIVE (NEGATIVE); Leukocyte Esterase NEGATIVE (NEGATIVE); Mucus SLIGHT /HPF (NEGATIVE); Nitrite NEGATIVE (NEGATIVE); Protein,Urine Dip 100 (Negative); Urobilinogen NEGATIVE mg/dL (0-1); WBC 0-2 /HPF (0-5)
== END 2019-03-07 18:40 | disposition home or self-care (01) ==
LOC: OB 12:03
PROVIDERS: ADMIT Family Medicine; ATTEND Family Medicine
DX: O14.93 Unspecified pre-eclampsia, third trimester (principal); Z3A.30 30 weeks gestation of pregnancy; O13.3 Gestational [pregnancy-induced] hypertension without significant proteinuria, third trimester
CPT/HCPCS: 36415; 76819; 80053; 80307; 81001; 81050; 83735; 84156; 84550; 85025; 85027; 85610; 85730; 87086; 96372; G0378; J0360; J0702; J2405; A9270-GY

== ENCOUNTER 2022-02-06 20:41 | Emergency (ER) | payer MEDICAID ==
[2022-02-06] MEDS ORDERED: BABY ASPIRIN 81 MG CHEW PO ONE (21:12)
[2022-02-06] MEDS ORDERED: BABY ASPIRIN 81 MG CHEW ONE (21:15)
[2022-02-06 21:17] LABS: Absolute Neutrophil Ct (ANC) 6.26 x10^3/uL (1.4-6.9); Basophil (Absolute #) 0.08 x10^3/uL (0-0.4); Eosinophil % 3.7 % (0.00-5.0); Eosinophil (Absolute #) 0.36 x10^3/uL (0-0.5); Hematocrit 43.9 % (35-47); Hemoglobin 14.5 g/dL (12.0-16.0); Lymphocyte (Absolute #) 2.43 x10^3/uL (1.0-4.6); Lymphocytes % 25.2 % (24.0-44.0); Mean Cell Volume 81.6 fL (78-100); Mean Platelet Volume 9.2 fL (7.5-11.0); Monocyte (Absolute #) 0.49 x10^3/uL (0.0-1.3); Monocytes % 5.1 % (0.0-12.0); Neutrophil % 64.8 % (36.0-66.0); Platelet Count 355 x10^3/uL (150-450); Red Blood Count 5.38 x10^6/uL (4.1-5.4); Red Cell Distribution Width 13.3 % (11.5-14.0); White Blood Count 9.7 x10^3/uL (4.0-10.5)
--- NOTE | 2022-02-06 21:17 | ERPHSYRPT ---
- History of Present Illness Historian: patient Exam Limitations: no limitations Patient Subjective Stated Complaint: pt states "I have been seeing [facility] for these chest pains. I had a echo on Wednesday and holter monitor before that. I was lying in bed and this chest pain began." Triage Nursing Assessment: pt ambulated into the er; pt is axo x4; c/o chest pain; pt states 9/10 pain to chest that radiates to ivan jaw; clear, bounding apical heart tone; clear lung sounds in all lobes; strong ivan radial pulse; strong ivan pedal pulses; no edema present; pt c/o SOB; tachycardic; hypertensive Physician History: 26 yo WF w mid-sternal chest pain w radiation to LUE and L mandible. pain occurred while pt in bed. Pain is 9/10, burning-throbbing, and nothing makes better or worse. Pain is accompanied by dyspnea but denies N/V/diaphoresis. She has a h/o anxiety and has had similar pain recently. Pt denies HTN/DM/hyperlipidemia/CAD-[place]. She does vape. Cough/fever/ denied. Timing/Duration: other (90 minutes) Activities at Onset: rest Quality: burning, throbbing Location: substernal Chest Pain Radiation: jaw, arm Severity of Pain-Max: severe Severity of Pain-Current: severe Modifying Factors: Improves With: nothing Associated Symptoms: denies symptoms, shortness of breath Prior Chest Pain/Cardiac Workup: recently seen/treated Nitro Today/Relief: no nitro taken today Aspirin Treatment Today: no aspirin today Allergies/Adverse Reactions: Penicillins Allergy (Verified 02/06/22 20:44) Rash Home Medications: Escitalopram Oxalate [Lexapro] 20 mg PO DAILY 02/06/22 [History] Lisdexamfetamine Dimesylate [Vyvanse] 20 mg PO 02/06/22 [History] Hx Tetanus, Diphtheria Vaccination/Date Given: Yes Hx Influenza Vaccination/Date Given: Yes Hx Pneumococcal Vaccination/Date Given: No Immunizations Up to Date: Yes Travel Risk - International Travel Have you traveled outside of the country in past 3 weeks: No - Coronavirus Screening Are you exhibiting any of the following symptoms?: No Close contact with a COVID-19 positive Pt in past 14-21 Days: No - Vaccine Status Have you recieved a Covid-19 vaccination: No - Review of Systems Constitutional: No Symptoms Eyes: No Symptoms Ears, Nose, & Throat: No Symptoms Respiratory: No Symptoms, Dyspnea Cardiac: No Symptoms, Chest Pain Abdominal/Gastrointestinal: No Symptoms Genitourinary Symptoms: No Symptoms Musculoskeletal: No Symptoms Skin: No Symptoms Neurological: No Symptoms Psychological: No Symptoms Endocrine: No Symptoms Hematologic/Lymphatic: No Symptoms Immunological/Allergic: No Symptoms - Past Medical History Pertinent Past Medical History: Yes Neurological History: Migraines ENT History: No Pertinent History Cardiac History: No Pertinent History Respiratory History: No Pertinent History Endocrine Medical History: No Pertinent History Musculoskeletal History: No Pertinent History GI Medical History: No Pertinent History History: No Pertinent History Psycho-Social History: Anxiety, Depression Female Reproductive Disorders: No Pertinent History Other Medical History: GALLBLADDER REMOVED 2011, CESEARIAN WITH TUBES REMOVED/TIED (MAR 2019), KNEE SURGERY (2016), SCOLIOSIS - Past Surgical History Past Surgical History: Yes Neuro Surgical History: No Pertinent History Cardiac: No Pertinent History Respiratory: No Pertinent History Gastrointestinal: Cholecystectomy Genitourinary: No Pertinent History Musculoskeletal: No Pertinent History Female Surgical History: Section, Tubal Ligation - Social History Smoking Status: Former smoker How long have you smoked: 3 Exposure to second hand smoke: Yes Drug Use: none Patient Lives Alone: No - Female History Hx Last Menstrual Period: 01/24/22 Hx Now: No - Nursing Vital Signs Nursing Vital Signs: Initial Vital Signs Temperature 99.4 F 02/06/22 20:46 Pulse Rate 126 H 02/06/22 20:46 Respiratory Rate 20 02/06/22 20:46 Blood Pressure 167/143 02/06/22 20:46 O2 Sat by Pulse Oximetry 100 02/06/22 20:46 Pain Scale Pain Intensity 2 - Physical Exam General Appearance: no apparent distress, anxiety Eye Exam: PERRL/EOMI, eyes nml inspection Ears, Nose, Throat Exam: normal ENT inspection, TMs normal, pharynx normal, moist mucous membranes Neck Exam: normal inspection, non-tender, supple, full range of motion, No meningismus, No mass, No Brudzinski, No Kernig's, No carotid bruit Respiratory Exam: normal breath sounds, lungs clear, airway intact, No respiratory distress Cardiovascular Exam: normal peripheral pulses, tachycardia, capillary refill <2 sec, No murmur Gastrointestinal/Abdomen Exam: soft, normal bowel sounds, No tenderness Back Exam: normal inspection, normal range of motion, No CVA tenderness, No vertebral tenderness Extremity Exam: normal inspection, normal range of motion Neurologic Exam: alert, oriented x 3, cooperative, manager story II-XII nml as tested, normal mood/affect, nml cerebellar function, nml station & gait, sensation nml, No motor deficits, No sensory deficit Skin Exam: normal color, warm, dry Lymphatic Exam: No adenopathy SpO2 Interpretation: normal SpO2: 100 O2 Delivery: Room Air - Course Nursing assessment & vital signs reviewed: Yes EKG Interpreted by Me: RATE (Sinus tach/rate 122/Mildly prolonged QTc/Non- specific ST-Twave changes) - Radiology Exams Chest X-ray Interpretation: Interpreted by me (CXR neg per ER read) Ordered Tests: Active Orders 24 hr Category Date Time Status EKG-ER Only STAT Care 02/06/22 21:10 Active CHEST 1 VIEW (PORTABLE) Stat Exams 02/06/22 21:10 Completed AMYLASE Stat Lab 02/06/22 21:13 Completed CBC W DIFF Stat Lab 02/06/22 21:13 Completed CMP Stat Lab 02/06/22 21:13 Completed D-DIMER QUANTITATIVE Stat Lab 02/06/22 21:13 Completed HCG QUALITATIVE,SERUM Stat Lab 02/06/22 21:13 Completed MAGNESIUM Stat Lab 02/06/22 21:13 Completed NT PRO BNP Stat Lab 02/06/22 21:13 Completed PROTIME WITH INR Stat Lab 02/06/22 21:13 Completed PTT Stat Lab 02/06/22 21:13 Completed TROPONIN Q4H Lab 02/06/22 21:13 Completed TROPONIN Q4H Lab 02/07/22 00:23 Completed TROPONIN Q4H Lab 02/07/22 05:15 Ordered Medication Summary Discontinued Medications Generic Name Dose Route Start Last Admin Trade Name Freq PRN Reason Stop Dose Admin Aspirin 324 mg 02/06/22 21:12 02/06/22 21:16 Aspirin 81 Mg Tab.Chew PO 02/06/22 21:13 324 mg STAT ONE Administration Aspirin Confirm 02/06/22 21:15 Aspirin 81 Mg Tab.Chew Administered 02/06/22 21:16 Dose 324 mg .ROUTE .STK-MED ONE Fentanyl Citrate 100 mcg 02/06/22 23:08 02/06/22 23:10 Fentanyl Citrate 100 Mcg/2 Ml* Vial IV 02/06/22 23:09 100 mcg STAT ONE Administration Fentanyl Citrate Confirm 02/06/22 23:09 Fentanyl Citrate 100 Mcg/2 Ml* Vial Administered 02/06/22 23:10 Dose 100 mcg .ROUTE .STK-MED ONE Lorazepam 1 mg 02/06/22 21:19 02/06/22 21:22 Lorazepam 2 Mg/1 Ml 2 Mg Vial IV 02/06/22 21:20 1 mg STAT ONE Administration Lorazepam Confirm 02/06/22 21:21 Lorazepam 2 Mg/1 Ml 2 Mg Vial Administered 02/06/22 21:22 Dose 2 mg .ROUTE .STK-MED ONE Ondansetron HCl 4 mg 02/06/22 23:08 02/06/22 23:10 Ondansetron Hcl 4 Mg/2 Ml Vial IV 02/06/22 23:09 4 mg STAT ONE Administration Ondansetron HCl Confirm 02/06/22 23:09 Ondansetron Hcl 4 Mg/2 Ml Vial Administered 02/06/22 23:10 Dose 4 mg .ROUTE .STK-MED ONE Lab/Rad Data: Laboratory Result Diagrams 02/06/22 21:13 02/06/22 21:13 Laboratory Results 02/07/22 02/06/22 02/06/22 Range/Units 00:23 21:13 21:13 WBC (4.0-10.5) x10^3/uL RBC (4.1-5.4) x10^6/uL Hgb (12.0-16.0) g/dL Hct (35-47) % MCV (78-100) fL MCH (26-32) pg MCHC (32-36) g/dL RDW (11.5-14.0) % Plt Count (150-450) x10^3/uL MPV (7.5-11.0) fL Gran % (36.0-66.0) % Immature Gran % (Auto) (0.00-0.4) % Nucleat RBC Rel Count (0.00-0.1) % Eos # (Auto) (0-0.5) x10^3/uL Immature Gran # (Auto) (0.00-0.03) x10^3u/L Absolute Lymphs (auto) (1.0-4.6) x10^3/uL Absolute Monos (auto) (0.0-1.3) x10^3/uL Absolute Nucleated RBC (0.00-0.01) x10^3u/L Lymphocytes % (24.0-44.0) % Monocytes % (0.0-12.0) % Eosinophils % (0.00-5.0) % Basophils % (0.0-0.4) % Absolute Granulocytes (1.4-6.9) x10^3/uL Basophils # (0-0.4) x10^3/uL PT (9.4-12.5) SECONDS INR (0.8-3.0) APTT (25.1-36.5) SECONDS D-Dimer (0.0-0.50) mg/L Sodium (137-145) mmol/L Potassium (3.5-5.1) mmol/L Chloride (98-107) mmol/L Carbon Dioxide (22-30) mmol/L Anion Gap (5-15) MEQ/L BUN (7-17) mg/dL Creatinine (0.52-1.04) mg/dL Estimated GFR ML/MIN Glucose (74-106) mg/dL Calcium (8.4-10.2) mg/dL Magnesium (1.6-2.3) mg/dL Total Bilirubin (0.2-1.3) mg/dL AST (14-36) U/L ALT (0-35) U/L Alkaline Phosphatase (38-126) U/L Troponin I < 0.012 < 0.012 (0.000-0.034) ng/mL NT-Pro-B Natriuret Pep (0-450) pg/mL Serum Total Protein (6.3-8.2) g/dL Albumin (3.5-5.0) g/dL Amylase (30-110) U/L Serum , Qual NEGATIVE (Negative) 02/06/22 02/06/22 02/06/22 Range/Units 21:13 21:13 21:13 WBC 9.7 (4.0-10.5) x10^3/uL RBC 5.38 (4.1-5.4) x10^6/uL Hgb 14.5 (12.0-16.0) g/dL Hct 43.9 (35-47) % MCV 81.6 (78-100) fL MCH 27.0 (26-32) pg MCHC 33.0 (32-36) g/dL RDW 13.3 (11.5-14.0) % Plt Count 355 (150-450) x10^3/uL MPV 9.2 (7.5-11.0) fL Gran % 64.8 (36.0-66.0) % Immature Gran % (Auto) 0.4 (0.00-0.4) % Nucleat RBC Rel Count 0.0 (0.00-0.1) % Eos # (Auto) 0.36 (0-0.5) x10^3/uL Immature Gran # (Auto) 0.04 H (0.00-0.03) x10^3u/L Absolute Lymphs (auto) 2.43 (1.0-4.6) x10^3/uL Absolute Monos (auto) 0.49 (0.0-1.3) x10^3/uL Absolute Nucleated RBC 0.00 (0.00-0.01) x10^3u/L Lymphocytes % 25.2 (24.0-44.0) % Monocytes % 5.1 (0.0-12.0) % Eosinophils % 3.7 (0.00-5.0) % Basophils % 0.8 (0.0-0.4) % Absolute Granulocytes 6.26 (1.4-6.9) x10^3/uL Basophils # 0.08 (0-0.4) x10^3/uL PT 10.4 (9.4-12.5) SECONDS INR 0.98 (0.8-3.0) APTT 27.7 (25.1-36.5) SECONDS D-Dimer 0.33 (0.0-0.50) mg/L Sodium 135 L (137-145) mmol/L Potassium 3.5 (3.5-5.1) mmol/L Chloride 100 (98-107) mmol/L Carbon Dioxide 27 (22-30) mmol/L Anion Gap 11.2 (5-15) MEQ/L BUN 14 (7-17) mg/dL Creatinine 0.75 (0.52-1.04) mg/dL Estimated GFR > 60.0 ML/MIN Glucose 107 H (74-106) mg/dL Calcium 9.2 (8.4-10.2) mg/dL Magnesium 2.2 (1.6-2.3) mg/dL Total Bilirubin 0.50 (0.2-1.3) mg/dL AST 26 (14-36) U/L ALT 26 (0-35) U/L Alkaline Phosphatase 111 (38-126) U/L Troponin I (0.000-0.034) ng/mL NT-Pro-B Natriuret Pep 23.0 (0-450) pg/mL Serum Total Protein 8.1 (6.3-8.2) g/dL Albumin 4.5 (3.5-5.0) g/dL Amylase 59 (30-110) U/L Serum , Qual (Negative) - Progress Progress: improved Air Movement: good Progress Note: 02/07/22 01:12 ASA 324mg po chewable x1 1mg IV Ativan w improvement 100mcg IV Fentalyl/4mg IV Zofran w improvement in pain Heart Score 1 Counseled pt/family regarding: lab results, diagnosis, need for follow-up, rad results - Departure Departure Disposition: Home Clinical Impression: Chest pain, Anxiety Condition: Stable Critical Care Time: No Referrals: YNF VENEGAS MD [Primary Care Provider] - Follow up/PCP as directed Instructions: Anxiety, Adult (DC), Chest Pain (DC) Additional Instructions: Return to ER for increasing pain or shortness of breath Follow up with your family MD on Wednesday
[2022-02-06] MEDS ORDERED: Ativan 2 MG/1 ML VIAL IV ONE (21:19)
[2022-02-06] MEDS ORDERED: Ativan 2 MG/1 ML VIAL ONE (21:21)
[2022-02-06 21:30] LABS: D-DIMER QUANTITATIVE 0.33 mg/L (0.0-0.50); INR 0.98 (0.8-3.0); PROTIME 10.4 SECONDS (9.4-12.5); PTT 27.7 SECONDS (25.1-36.5)
[2022-02-06 21:31] LABS: ALBUMIN 4.5 g/dL (3.5-5.0); ALKALINE PHOSPHATASE 111 U/L (38-126); AMYLASE 59 U/L (30-110); ANION GAP 11.2 MEQ/L (5-15); BLOOD UREA NITROGEN 14 mg/dL (7-17); CHLORIDE 100 mmol/L (98-107); Calcium 9.2 mg/dL (8.4-10.2); Carbon Dioxide 27 mmol/L (22-30); Creatinine 1 0.75 mg/dL (0.52-1.04); EST GLOMERULAR FILTRATION RATE > 60.0 ML/MIN; Glucose 107 mg/dL (74-106); MAGNESIUM 2.2 mg/dL (1.6-2.3); Potassium 3.5 mmol/L (3.5-5.1); SGOT/AST 26 U/L (14-36); SGPT/ALT 26 U/L (0-35); SODIUM 135 mmol/L (137-145); Total Protein 8.1 g/dL (6.3-8.2)
--- NOTE | 2022-02-06 22:00 | XRAY ---
Indication: Chest pain. Comparison: February 26, 2011 Portable chest again demonstrates normal heart, lungs, and bony thorax.
[2022-02-06] MEDS ORDERED: Zofran 4 MG/2 ML VIAL IV ONE (23:08)
[2022-02-06] MEDS ORDERED: SUBLIMAZE 100 MCG/2 ML IV ONE (23:08)
[2022-02-06] MEDS ORDERED: SUBLIMAZE 100 MCG/2 ML ONE (23:09)
[2022-02-06] MEDS ORDERED: Zofran 4 MG/2 ML VIAL ONE (23:09)
[2022-02-07 01:16] VITALS: O2SAT 100
[2022-02-07 01:21] VITALS: BP 130/70; PULSE 92
== END 2022-02-07 01:29 | disposition home or self-care (01) ==
LOC: ED 20:41
DX: R07.9 Chest pain, unspecified (principal); F41.9 Anxiety disorder, unspecified; R06.00 Dyspnea, unspecified; Z79.899 Other long term (current) drug therapy; Z28.310 Unvaccinated for COVID-19
CPT/HCPCS: 36415; 71045; 80053; 82150; 83735; 83880; 84484; 84703; 85025; 85379; 85610; 85730; 93005; 96374; 96375; 99284; J2060; J2405; J3010; A9270-GY

== ENCOUNTER 2022-11-10 11:11 | Emergency (ER) | payer OTHER ==
[2022-11-10] MEDS ORDERED: TORAdol 30 mg Injection IM ONE (11:36)
[2022-11-10] MEDS ORDERED: Compazine 10 MG/2 ML IV ONE (11:36)
[2022-11-10] MEDS ORDERED: TORAdol 30 mg Injection IV ONE (11:41)
[2022-11-10] MEDS ORDERED: TORAdol 30 mg Injection ONE (11:43)
[2022-11-10] MEDS ORDERED: Compazine 10 MG/2 ML ONE (11:43)
[2022-11-10 12:04] VITALS: O2SAT 96
[2022-11-10 12:14] VITALS: BP 182/125; PULSE 100
--- NOTE | 2022-11-10 12:19 | ERPHSYRPT ---
- History of Present Illness Time Seen by Provider: 11/10/22 12:16 Source: patient Exam Limitations: no limitations Patient Subjective Stated Complaint: pt here for hypertension today while at dentist office today, was 202/139. she states she is nervous about tooth and has pain Triage Nursing Assessment: pt alert, resp easy, walked in, skin w/d/p, no edema noted Physician History: Patient a 27-year-old female presents to our ED for evaluation of blood pressure. Patient states she was at a dental office. Patient was awaiting a dental procedure. She was nervous and in pain. Patient's vitals were checked. Blood pressure was found to be 202/139. Patient was then sent to our ED. Patient has no other complaints. No trauma. No fever. Patient has a slight frontal headache. No nausea no vomiting. No chest pain or shortness of breath. No numbness tingling or weakness. Patient voices no other complaints or concerns at this time. Portions of this note were created with voice recognition technology. There may be grammatical, spelling, punctuation or sound alike errors Timing/Duration: today Severity: moderate Modifying Factors: Improves With: nothing Associated Symptoms: denies symptoms Allergies/Adverse Reactions: Penicillins Allergy (Verified 11/10/22 11:25) Rash Home Medications: Venlafaxine HCl 37.5 mg [Effexor 37.5 mg] 37.5 mg PO DAILY 11/10/22 [History] Hx Tetanus, Diphtheria Vaccination/Date Given: Yes Hx Influenza Vaccination/Date Given: Yes Hx Pneumococcal Vaccination/Date Given: No Immunizations Up to Date: Yes Travel Risk - International Travel Have you traveled outside of the country in past 3 weeks: No - Coronavirus Screening Are you exhibiting any of the following symptoms?: No Close contact with a COVID-19 positive Pt in past 14-21 Days: No - Vaccine Status Have you recieved a Covid-19 vaccination: No - Review of Systems Constitutional: No Symptoms, No Fever, No Chills Eyes: No Symptoms Ears, Nose, & Throat: No Symptoms Respiratory: No Symptoms, No Cough, No Dyspnea Cardiac: No Symptoms, No Chest Pain, No Edema, No Syncope Abdominal/Gastrointestinal: No Symptoms, No Abdominal Pain, No Nausea, No Vomiting, No Diarrhea Genitourinary Symptoms: No Symptoms, No Dysuria Musculoskeletal: No Symptoms, No Back Pain, No Neck Pain Skin: No Symptoms, No Rash Neurological: No Symptoms, No Dizziness, No Focal Weakness, No Sensory Changes Psychological: No Symptoms Endocrine: No Symptoms Hematologic/Lymphatic: No Symptoms Immunological/Allergic: No Symptoms All Other Systems: Reviewed and Negative - Past Medical History Pertinent Past Medical History: Yes Neurological History: Migraines ENT History: No Pertinent History Cardiac History: No Pertinent History Respiratory History: No Pertinent History Endocrine Medical History: No Pertinent History Musculoskeletal History: No Pertinent History GI Medical History: No Pertinent History History: No Pertinent History Psycho-Social History: Anxiety, Depression Female Reproductive Disorders: No Pertinent History Other Medical History: GALLBLADDER REMOVED 2011, CESEARIAN WITH TUBES REMOVED/TIED (MAR 2019), KNEE SURGERY (2016), SCOLIOSIS - Past Surgical History Past Surgical History: Yes Neuro Surgical History: No Pertinent History Cardiac: No Pertinent History Respiratory: No Pertinent History Gastrointestinal: Cholecystectomy Genitourinary: No Pertinent History Musculoskeletal: No Pertinent History Female Surgical History: Section, Tubal Ligation - Social History Smoking Status: Former smoker How long have you smoked: 3 Exposure to second hand smoke: Yes Drug Use: none Patient Lives Alone: No - Female History Hx Last Menstrual Period: month ago Hx Now: No - Nursing Vital Signs Nursing Vital Signs: Initial Vital Signs Pulse Rate 112 H 11/10/22 11:28 Respiratory Rate 18 11/10/22 11:28 Blood Pressure 230/147 11/10/22 11:28 O2 Sat by Pulse Oximetry 98 11/10/22 11:28 Pain Scale Pain Intensity 8 - Physical Exam General Appearance: no apparent distress, alert Eye Exam: PERRL/EOMI, eyes nml inspection Ears, Nose, Throat Exam: normal ENT inspection, TMs normal, pharynx normal, moist mucous membranes Neck Exam: normal inspection, non-tender, supple, full range of motion Respiratory Exam: normal breath sounds, lungs clear, No respiratory distress Cardiovascular Exam: regular rate/rhythm, normal heart sounds, normal peripheral pulses Gastrointestinal/Abdomen Exam: soft, normal bowel sounds, No tenderness, No mass Back Exam: normal inspection, normal range of motion, No CVA tenderness, No vertebral tenderness Extremity Exam: normal inspection, normal range of motion, pelvis stable Neurologic Exam: alert, oriented x 3, cooperative, normal mood/affect, nml cerebellar function, nml station & gait, sensation nml, No motor deficits Skin Exam: normal color, warm, dry, No rash Lymphatic Exam: No adenopathy SpO2 Interpretation: normal SpO2: 96 O2 Delivery: Room Air - Course Nursing assessment & vital signs reviewed: Yes EKG Interpreted by Me: RATE (117), Sinus Tach, NORMAL AXIS, NORMAL INTERVALS (Left anterior fascicular block) Ordered Tests: Active Orders 24 hr Category Date Time Status IV Insertion STAT Care 11/10/22 11:42 Active Medication Summary Discontinued Medications Generic Name Dose Route Start Last Admin Trade Name [place] PRN Reason Stop Dose Admin Ketorolac Tromethamine 30 mg 11/10/22 11:36 11/10/22 11:41 Ketorolac Tromethamine 30 Mg/Ml Inj IM 11/10/22 11:37 Not Given STAT ONE Ketorolac Tromethamine 30 mg 11/10/22 11:41 11/10/22 11:44 Ketorolac Tromethamine 30 Mg/Ml Inj IV 11/10/22 11:42 30 mg STAT ONE Administration Ketorolac Tromethamine Confirm 11/10/22 11:43 Ketorolac Tromethamine 30 Mg/Ml Inj Administered 11/10/22 11:44 Dose 30 mg .ROUTE .STK-MED ONE Prochlorperazine Edisylate 10 mg 11/10/22 11:36 11/10/22 11:44 Prochlorperazine Edisylate 10 Mg/2 Ml Vial IV 11/10/22 11:37 10 mg STAT ONE Administration Prochlorperazine Edisylate Confirm 11/10/22 11:43 Prochlorperazine Edisylate 10 Mg/2 Ml Vial Administered 11/10/22 11:44 Dose 10 mg .ROUTE .STK-MED ONE - Progress Progress: improved Progress Note: Patient a 27-year-old female presents to our ED as a referral from her dentist for high blood pressure. Upon arrival patient's blood pressure was 230 systolic. Patient had a slight headache. We placed an IV. Patient received Toradol and Compazine for pain and nausea. Blood pressure improved somewhat down to 182 systolic. However patient states she did not want to stay for work- up. Patient requesting discharge. Patient states "I just want to go home and relax". Patient discharged AMA. Patient is of sound mind. Patient is appropriate to make informed and independent medical decisions. Patient understands that leaving AGAINST MEDICAL ADVICE can result in delayed diagnosis, increased risk of morbidity, mortality, short and long-term disability including . In spite of these risks, patient has decided to leave AGAINST MEDICAL ADVICE. Patient understands that she may return to our ED at any point if she reconsiders. Patient agrees to follow-up with his or her primary care doctor within 48 hours for reevaluation. Patient voices no other complaints or concerns at this time. We will release patient AGAINST MEDICAL ADVICE per their request. Complexity of problem addressed is acute complicated. Complexity of data reviewed and analyzed is none. Patient declined specialized testing. Patient left AMA Risk of complication and or risk morbidity/mortality patient management is moderate. Patient receiving IV. IV medications administered including Compazine for headache and nausea. Toradol for headache. We intended to treat patient's pain and observe change in blood pressure. Blood pressure improved but was not back down to baseline at time of release. Patient left AMA on her own will. Vital stable. Blood pressure improved. No social determinants of health present to impede follow-up. Patient has follow- up appointment scheduled for Wednesday with her dentist. Patient left AMA. Portions of this note were created with voice recognition technology. There may be grammatical, spelling, punctuation or sound alike errors 11/10/22 12:20 Counseled pt/family regarding: diagnosis, need for follow-up - Departure Departure Disposition: AMA Clinical Impression: Hypertension, Pain, dental, Left anterior fascicular block Condition: Stable Critical Care Time: No Referrals: YFN VENEGAS MD [Primary Care Provider] - Follow up/PCP as directed Additional Instructions: Discharge/Care Plan CAMRYN ZELAYA RAI was seen on 11/10/22 in the Emergency Room. The patient was counseled regarding Diagnosis,Lab results, Imaging studies, need for follow up and when to return to the Emergency Room. Prescriptions given: Discharge Note I have spoken with the patient and/or caregivers. I have explained the patient's condition, diagnosis and treatment plan based on the information available to me at this time. I have answered the patient's and/or caregiver's questions and addressed any concerns. The patient and/or caregivers have as good understanding of the patient's diagnosis, condition and treatment plan as can be expected at this point. The vital signs have been stable. The patient's condition is stable and appropriate for discharge from the emergency department. The patient will pursue further outpatient evaluation with the primary care physician or other designated or consulting physician as outlined in the discharge instructions. The patient and/or caregivers are agreeable to this plan of care and follow-up instructions have been explained in detail. The patient and/or caregivers have received these instruction. The patient/and or caregivers are aware that any significant change in condition or worsening of symptoms should prompt an immediate return to this or the closest emergency department or call 911.
== END 2022-11-10 12:20 | disposition left against medical advice (07) ==
LOC: ED 11:11
DX: I10 Essential (primary) hypertension (principal); K08.89 Other specified disorders of teeth and supporting structures; I44.4 Left anterior fascicular block; R51.9 Headache, unspecified; Z79.899 Other long term (current) drug therapy; Z28.310 Unvaccinated for COVID-19
CPT/HCPCS: 36000; 96374; 96375; 99283; J1885

== ENCOUNTER 2024-03-03 08:25 | Emergency (ER) | payer OTHER ==
--- NOTE | 2024-03-03 08:29 | ERPHSYRPT ---
- History of Present Illness Time Seen by Provider: 03/03/24 08:29 Source: patient, family Exam Limitations: no limitations Physician History: pt tripped over lantern in dark and fell onto right lower leg and knee a few days ago and developed sharp pain in knee yesterday. No direct trauma to any other locations. N/V intact. No prodrome or dizziness no blood dyscrasias or blood thinners. Normal mental status and neuro exam. No Chest or abd pain. Chest and abd all nontender without peritoneal signs or distension or mass. Full ROM all other ext. without pain. Tender right knee to palpation greater medially and with laxity to medial stress. Negative drawer. Tender also ant lower leg. Discussed risk/benefit of x-ray eval and pt wishes to proceed so these are ordered for knee and ant tibia Discussed risks/benefits of pain meds and immobilizer and crutches including script and pt wishes to just go with OTC tylenol and will take the immobilizer and crutches. Method of Injury: fell Occurred: days ago Quality: intermittent, sharpness Severity of Pain-Max: moderate Severity of Pain-Current: moderate Lower Extremities Pain: leg: right, knee: right Modifying Factors: Improves With: cold therapy, immobilization, movement Associated Symptoms: none Allergies/Adverse Reactions: Penicillins Allergy (Verified 03/03/24 08:37) Rash Home Medications: Clonidine HCl 0.1 mg [Clonidine 0.1 mg Tablet] 1 tab PO HS 03/03/24 [History] [place] Carbonate 1 tab PO DAILY 03/03/24 [History] Venlafaxine HCl [Venlafaxine HCl ER] 1 tab PO DAILY 03/03/24 [History] Venlafaxine HCl [Venlafaxine HCl ER] 75 mg PO DAILY 03/03/24 [History] Hx Tetanus, Diphtheria Vaccination/Date Given: Yes Hx Influenza Vaccination/Date Given: Yes Hx Pneumococcal Vaccination/Date Given: No Travel Risk - Emerging Infectious Disease Are you exhibiting symptoms associated with any current EIDs: No - Review of Systems Constitutional: No Fever, No Chills Eyes: No Symptoms Ears, Nose, & Throat: No Symptoms Respiratory: No Cough, No Dyspnea Cardiac: No Chest Pain, No Edema, No Syncope Abdominal/Gastrointestinal: No Abdominal Pain, No Nausea, No Vomiting, No Diarrhea Genitourinary Symptoms: No Dysuria Musculoskeletal: Fall, Injury, Joint Pain, No Back Pain, No Neck Pain Skin: No Rash Neurological: No Dizziness, No Focal Weakness, No Sensory Changes Psychological: No Symptoms Endocrine: No Symptoms Hematologic/Lymphatic: No Symptoms Immunological/Allergic: No Symptoms All Other Systems: Reviewed and Negative - Past Medical History Pertinent Past Medical History: Yes Neurological History: Migraines ENT History: No Pertinent History Cardiac History: No Pertinent History Respiratory History: No Pertinent History Endocrine Medical History: No Pertinent History Musculoskeletal History: No Pertinent History GI Medical History: No Pertinent History History: No Pertinent History Psycho-Social History: Anxiety, Depression Female Reproductive Disorders: No Pertinent History Other Medical History: SCOLIOSIS - Past Surgical History Past Surgical History: Yes Neuro Surgical History: No Pertinent History Cardiac: No Pertinent History Respiratory: No Pertinent History Gastrointestinal: Cholecystectomy Genitourinary: No Pertinent History Musculoskeletal: Other Female Surgical History: Section, Tubal Ligation Other Surgical History: gastric sleeve, KNEE SURGERY (2017) - Social History Smoking Status: Never smoker How long have you smoked: 3 Exposure to second hand smoke: Yes Drug Use: marijuana Patient Lives Alone: No - Social Determinants of Health Will the patient participate in the screening: Declined to provide - Nursing Vital Signs Nursing Vital Signs: Initial Vital Signs Temperature 97.2 F 03/03/24 08:33 Pulse Rate 84 03/03/24 08:33 Respiratory Rate 16 03/03/24 08:33 Blood Pressure 159/115 03/03/24 08:33 O2 Sat by Pulse Oximetry 98 03/03/24 08:33 Pain Scale Pain Intensity 6 - Physical Exam General Appearance: no apparent distress, alert Eyes, Ears, Nose, Throat Exam: moist mucous membranes Neck Exam: non-tender, supple Cardiovascular/Respiratory Exam: chest non-tender, normal breath sounds, regular rate/rhythm, no respiratory distress Gastrointestinal/Abdominal Exam: non-tender, guarding Back Exam: normal inspection, No vertebral tenderness Hips Exam: bilateral: non-tender, normal inspection, normal range of motion, no evidence of injury Legs Exam: right leg: bone tenderness, ecchymosis, pain, soft tissue tenderness, left leg: non-tender, normal inspection, normal range of motion, no evidence of injury Knees Exam: right knee: bone tenderness, ecchymosis, joint effusion, pain, soft tissue tenderness, swelling, left knee: non-tender, normal inspection, normal range of motion, no evidence of injury Ankle Exam: bilateral ankle: non-tender, normal inspection, normal range of motion, no evidence of injury Foot Exam: bilateral foot: non-tender, normal inspection, normal range of motion, no evidence of injury DTR - Lower Extremities Exam: knee (R): 2+, knee (L): 2+, ankle (R): 2+, ankle (L): 2+ Neuro/Tendon Exam: normal sensation, normal motor functions, normal tendon functions Mental Status Exam: alert, oriented x 3, cooperative Skin Exam: normal color, warm, dry SpO2 Interpretation: normal SpO2: 98 O2 Delivery: Room Air - Course Nursing assessment & vital signs reviewed: Yes - Radiology Exams Right Lower Leg X-ray Interpretation: Interpreted by me, Other (No obvious fracture) Right Knee X-ray Interpretation: Interpreted by me, Other (suspicious area for medial tibial occult plateau fx. ) Ordered Tests: Active Orders 24 hr Category Date Time Status Crutches STAT Care 03/03/24 09:34 Ordered Immobilizer STAT Care 03/03/24 09:34 Ordered KNEE (3 VIEWS) Stat Exams 03/03/24 09:00 Taken LOWER LEG Stat Exams 03/03/24 09:00 Taken - Progress Progress: improved, re-examined Counseled pt/family regarding: diagnosis, need for follow-up, rad results Medical Desision Making - Independent Historian Additional History obtained from: Family - Discussion of managment Reviewed:: Test results, Need for additional workup Agreed on:: Treatment plan, need for follow-up - Diagnostic Testing Diagnostic test were ordered, analyzed, and reviewed by me: Yes Radiological Interpretation: Interpreted by me - Risk of complications The pt has a mod risk of morbidity or mortality based on: Need for prescription drug management - Departure Departure Disposition: Home Clinical Impression: Hypertension, Internal derangement of right knee, Occult tibial fracture Condition: Good Critical Care Time: No Referrals: YFN VENEGAS MD [Primary Care Provider] - Follow up/PCP as directed Instructions: Knee Sprain (DC), Internal Derangement of the Knee (DC), Lower leg fracture Additional Instructions: Follow-up with your to consider MRI and Ortho referral. Final x-ray report later today by the radiologist reading. THere are signs which could be internal ligament or meniscus injury and possible hairline fracture. Follow-up also with your Dr. for your elevated blood pressure reading and return meantime if any symptoms. Use knee immobilizer and crutches. Avoid driving with this injury and immobilizer. Return meantime if increased pain, numbness or any other concerns.
[2024-03-03 08:46] VITALS: RESP 16; TEMP 97.2; O2SAT 98
[2024-03-03 09:31] VITALS: BP 166/120; PULSE 78
--- NOTE | 2024-03-03 09:59 | XRAY ---
Indication: Pain following fall. Comparison: None 3 portable views right knee demonstrates minimal medial joint space spurring. No other bony, articular, or soft tissue abnormalities.
--- NOTE | 2024-03-03 10:01 | XRAY ---
Indication: Tenderness following fall. Comparison: None 2 portable views right lower leg demonstrates tiny plantar heel spur. No other bony, articular, or soft tissue abnormalities.
== END 2024-03-03 10:03 | disposition home or self-care (01) ==
LOC: ED 08:25
DX: M23.91 Unspecified internal derangement of right knee (principal); S82.141A Displaced bicondylar fracture of right tibia, initial encounter for closed fracture; W01.0XXA Fall on same level from slipping, tripping and stumbling without subsequent striking against object, initial encounter; M25.561 Pain in right knee; Z79.899 Other long term (current) drug therapy
CPT/HCPCS: 73562; 73590; 99283; L1830

== ENCOUNTER 2025-03-16 16:03 | Emergency (ER) | payer OTHER ==
--- NOTE | 2025-03-16 16:50 | ERPHSYRPT ---
- History of Present Illness Time Seen by Provider: 03/16/25 16:49 Source: patient, family Exam Limitations: no limitations Physician History: This is a 29-year-old white female patient who states that she had a high blood pressure reading of 160/120 earlier at home prior to arrival. She also had some associated chest tightness. Patient stopped her blood pressure medication 3 months ago. Because of her symptoms and the fact she measured a high blood pressure she presents to the emergency department with a blood pressure reading of 163/117 with a heart rate of 96. Her room air oxygen saturation level 99 to 100%. Patient was taking clonidine, metoprolol and lisinopril. All of these medications she stopped 3 months ago. She restarted them at approximately 1 PM today. Patient has a history of anxiety, depression and migraine headaches as well. Again, the chest pain is described as tightness which is leading up. It is nonradiating. Timing/Duration: today Severity: mild Associated Symptoms: chest pain (Described as a generalized anterior tightness without radiation) Allergies/Adverse Reactions: Penicillins Allergy (Verified 03/03/24 08:37) Rash Home Medications: [place] Carbonate 1 tab PO DAILY 03/03/24 [History] Venlafaxine HCl [Venlafaxine HCl ER] 2 tab PO DAILY 03/03/24 [History] Lisinopril 10 mg [Zestril 10 MG] 10 mg PO DAILY 03/16/25 [History] Metoprolol Succinate 25 mg Xl* [Toprol-Xl 25MG Tablets] 25 mg PO DAILY 03/16/25 [History] cloNIDine HCL [Clonidine HCl] 0.3 mg PO DAILY PRN 03/16/25 [History] Hx Tetanus, Diphtheria Vaccination/Date Given: Yes Hx Influenza Vaccination/Date Given: Yes Hx Pneumococcal Vaccination/Date Given: No Travel Risk - International Travel Have you traveled outside of the country in past 3 weeks: No - Emerging Infectious Disease Are you exhibiting symptoms associated with any current EIDs: No - Review of Systems Constitutional: No Symptoms Eyes: No Symptoms Ears, Nose, & Throat: No Symptoms Respiratory: No Symptoms Cardiac: Chest Pain (Described as anterior chest wall tightness without radiation) Abdominal/Gastrointestinal: No Symptoms Genitourinary Symptoms: No Symptoms Musculoskeletal: No Symptoms Skin: No Symptoms Neurological: No Symptoms Psychological: No Symptoms Endocrine: No Symptoms Hematologic/Lymphatic: No Symptoms Immunological/Allergic: No Symptoms All Other Systems: Reviewed and Negative - Past Medical History Pertinent Past Medical History: Yes Neurological History: Migraines ENT History: No Pertinent History Cardiac History: No Pertinent History Respiratory History: No Pertinent History Endocrine Medical History: No Pertinent History Musculoskeletal History: No Pertinent History GI Medical History: No Pertinent History History: No Pertinent History Psycho-Social History: Anxiety, Depression Female Reproductive Disorders: No Pertinent History Other Medical History: SCOLIOSIS - Past Surgical History Past Surgical History: Yes Neuro Surgical History: No Pertinent History Cardiac: No Pertinent History Respiratory: No Pertinent History Gastrointestinal: Cholecystectomy Genitourinary: No Pertinent History Musculoskeletal: Other Female Surgical History: Section, Tubal Ligation Other Surgical History: gastric sleeve, KNEE SURGERY (2017) - Female History Hx Last Menstrual Period: beginning of February 2024 - Social History Smoking Status: Never smoker How long have you smoked: 3 Exposure to second hand smoke: Yes Drug Use: marijuana Patient Lives Alone: No - Social Determinants of Health Will the patient participate in the screening: Declined to provide - Nursing Vital Signs Nursing Vital Signs: Initial Vital Signs Temperature 97.2 F 03/16/25 16:44 Pulse Rate 96 H 03/16/25 16:44 Respiratory Rate 18 03/16/25 16:44 Blood Pressure 163/117 03/16/25 16:44 O2 Sat by Pulse Oximetry 98 03/16/25 16:44 Pain Scale Pain Intensity 0 - Physical Exam General Appearance: no apparent distress, alert, anxiety Eye Exam: PERRL/EOMI, eyes nml inspection Ears, Nose, Throat Exam: normal ENT inspection, moist mucous membranes Neck Exam: normal inspection, non-tender, supple, full range of motion Respiratory Exam: normal breath sounds, chest tenderness (Mild anterior chest wall tightness which is actually improving), lungs clear, airway intact, No respiratory distress Cardiovascular Exam: regular rate/rhythm, normal heart sounds, normal peripheral pulses Gastrointestinal/Abdomen Exam: No tenderness Pelvic Exam: not done Rectal Exam: not done Back Exam: normal inspection, normal range of motion, No CVA tenderness, No vertebral tenderness Extremity Exam: normal inspection, normal range of motion, pelvis stable Neurologic Exam: alert, oriented x 3, cooperative, 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 QTc is 485) Ordered Tests: Active Orders 24 hr Category Date Time Status EKG-ER Only STAT Care 03/16/25 17:16 Completed IV Insertion STAT Care 03/16/25 17:16 Active CBC W DIFF Stat Lab 03/16/25 17:23 Completed CMP Stat Lab 03/16/25 17:23 Completed MAGNESIUM Stat Lab 03/16/25 17:23 Completed TROPONIN Q4H Lab 03/16/25 17:23 Completed TROPONIN Q4H Lab 03/16/25 21:30 Ordered TROPONIN Q4H Lab 03/17/25 01:30 Ordered Medication Summary Discontinued Medications Generic Name Dose Route Start Last Admin Trade Name Freq PRN Reason Stop Dose Admin Aspirin 324 mg 03/16/25 17:16 03/16/25 17:21 Aspirin 81 Mg Tab.Chew PO 03/16/25 17:17 324 mg STAT ONE Administration Aspirin Confirm 03/16/25 17:21 Aspirin 81 Mg Tab.Chew Administered 03/16/25 17:22 Dose 324 mg .ROUTE .STK-MED ONE Labetalol HCl 2.5 mg 03/16/25 17:55 03/16/25 18:03 Labetalol Hcl 20 Mg/4 Ml Disp.Syringe IV 03/16/25 17:56 2.5 mg STAT ONE Administration Labetalol HCl Confirm 03/16/25 18:02 Labetalol Hcl 20 Mg/4 Ml Disp.Syringe Administered 03/16/25 18:03 Dose 20 mg IV .STK-MED ONE Lab/Rad Data: Laboratory Result Diagrams 03/16/25 17:23 03/16/25 17:23 Laboratory Results 03/16/25 03/16/25 03/16/25 Range/Units 17:23 17:23 17:23 WBC 9.4 (3.98-10.04) x10^3/uL RBC 5.07 (3.93-5.22) x10^6/uL Hgb 14.8 (11.2-15.7) g/dL Hct 44.2 (34.1-44.9) % MCV 87.2 (79.4-94.8) fL MCH 29.2 (25.6-32.2) pg MCHC 33.5 (32.2-35.5) g/dL RDW 12.5 (11.7-14.4) % Plt Count 351 (182-369) x10^3/uL MPV 9.7 (9.4-12.3) fL Gran % 75.5 H (34.0-71.1) % Immature Gran % (Auto) 0.3 (0.001-0.429) % Nucleat RBC Rel Count 0.0 (0.00-0.2) % Eos # (Auto) 0 L (0.04-0.36) x10^3/uL Immature Gran # (Auto) 0.03 (0.001-0.031) x10^3u/L Absolute Lymphs (auto) 1.77 (1.18-3.74) x10^3/uL Absolute Monos (auto) 0.44 (0.24-0.86) x10^3/uL Absolute Nucleated RBC 0.00 (0.00-0.012) x10^3u/L Lymphocytes % 18.8 L (19.3-51.7) % Monocytes % 4.7 (4.7-12.5) % Eosinophils % 0.0 L (0.7-5.8) % Basophils % 0.7 (0.1-1.2) % Absolute Granulocytes 7.13 H (1.56-6.13) x10^3/uL Basophils # 0.07 (0.01-0.08) x10^3/uL Sodium 136 (135-145) mmol/L Potassium 3.6 (3.5-5.1) mmol/L Chloride 102 (98-107) mmol/L Carbon Dioxide 23 (22-30) mmol/L Anion Gap 15.7 H (5-15) MEQ/L BUN 10 (7-17) mg/dL Creatinine 0.79 (0.52-1.04) mg/dL Estimated GFR 103.1 ML/MIN Glucose 138 H (74-106) mg/dL Calcium 9.5 (8.4-10.2) mg/dL Magnesium 1.9 (1.6-2.3) mg/dL Total Bilirubin 0.60 (0.2-1.3) mg/dL AST 32 (14-36) U/L ALT 18 (0-35) U/L Alkaline Phosphatase 115 (38-126) U/L Troponin I < 0.012 (0.000-0.033) ng/mL Serum Total Protein 8.2 (6.3-8.2) g/dL Albumin 4.8 (3.5-5.0) g/dL - Progress Progress: improved Progress Note: 03/16/25 19:17 My medical decision making and the assignment of moderate complexity of this patient's medical issue today is based on review of the patient's past medical history, reviewed the patient's medication list, review the patient drug allergy list, history present illness and physical findings on examination. The workup in this patient includes placement of intravenous line, CBC, CMP, troponin level, magnesium level. Differential diagnosis includes was not limited to medication noncompliance, elevated blood pressure, chest tightness, electrolyte abnormalities, myocardial infarction, arrhythmias. I interpreted the patient's laboratory data results. Based on laboratory data results there are no acute, emergent medical issues. At the time of discharge the patient no longer has chest pain. Her systolic blood pressures at 140 mmHg over diastolic blood pressure of 96 mmHg. Counseled pt/family regarding: lab results, diagnosis, need for follow-up Medical Desision Making - Independent Historian Additional History obtained from: Relative/friend - Diagnostic Testing Diagnostic test were ordered, analyzed, and reviewed by me: Yes - Risk of complications Low Risk: Low risk of morbidity from additional dx testing or treatment - Departure Departure Disposition: Home Clinical Impression: High blood pressure, Noncompliance with medication regimen Condition: Stable Critical Care Time: No Referrals: YFN VENEGAS MD [Primary Care Provider, [facility]] - Follow up/PCP as directed Additional Instructions: Continue your blood pressure medication as prescribed. Per our discussion, monitor your blood pressure morning noon and night for the next 72 hours. Keep a daily log of those values and contact your primary prescribing provider on 03/19/2025 and make arrangements for a follow-up appointment.
[2025-03-16 16:54] VITALS: TEMP 97.2; O2SAT 98
[2025-03-16 17:08] VITALS: RESP 18
[2025-03-16] MEDS: BABY ASPIRIN 81 MG CHEW PO ONE (17:21)
[2025-03-16] MEDS ORDERED: BABY ASPIRIN 81 MG CHEW ONE (17:21)
[2025-03-16 17:28] LABS: BASOPHIL % 0.7 % (0.1-1.2); Basophil (Absolute #) 0.07 x10^3/uL (0.01-0.08); Eosinophil (Absolute #) 0 x10^3/uL (0.04-0.36); Hematocrit 44.2 % (34.1-44.9); Hemoglobin 14.8 g/dL (11.2-15.7); IMMATURE GRAN # 0.03 x10^3u/L (0.001-0.031); IMMATURE GRAN % 0.3 % (0.001-0.429); Lymphocyte (Absolute #) 1.77 x10^3/uL (1.18-3.74); Mean Corpuscular Hemoglobin 29.2 pg (25.6-32.2); Mean Corpuscular Hgb Concent. 33.5 g/dL (32.2-35.5); Monocyte (Absolute #) 0.44 x10^3/uL (0.24-0.86); NUCLEATED RBC # 0.00 x10^3u/L (0.00-0.012); NUCLEATED RBC % 0.0 % (0.00-0.2); Platelet Count 351 x10^3/uL (182-369); Red Blood Count 5.07 x10^6/uL (3.93-5.22); White Blood Count 9.4 x10^3/uL (3.98-10.04)
[2025-03-16 17:45] LABS: Calcium 9.5 mg/dL (8.4-10.2); Carbon Dioxide 23.0 mmol/L (22-30); Creatinine 1 0.79 mg/dL (0.52-1.04); EST GLOMERULAR FILTRATION RATE 103.1 ML/MIN; Glucose 138.0 mg/dL (74-106); Potassium 3.6 mmol/L (3.5-5.1); SGOT/AST 32.0 U/L (14-36); SGPT/ALT 18.0 U/L (0-35); Total Protein 8.2 g/dL (6.3-8.2)
[2025-03-16] MEDS ORDERED: TRANDATE 20 MG/4 ML SYRINGE IV ONE (18:02)
[2025-03-16] MEDS: TRANDATE 20 MG/4 ML SYRINGE IV ONE (18:03)
[2025-03-16 18:22] VITALS: BP 150/104; PULSE 87
== END 2025-03-16 19:46 | disposition home or self-care (01) ==
LOC: ED 16:03
DX: I10 Essential (primary) hypertension (principal); Z91.148 Patient's other noncompliance with medication regimen for other reason; R07.9 Chest pain, unspecified; Z79.899 Other long term (current) drug therapy

== ENCOUNTER 2025-04-12 15:22 | Emergency (ER) | payer OTHER ==
--- NOTE | 2025-04-12 15:36 | ERPHSYRPT ---
- History of Present Illness Time Seen by Provider: 04/12/25 15:36 Historian: patient Exam Limitations: no limitations Physician History: This is a 29-year-old white female patient who was having symptoms of bodyaches and ended up going to see an outpatient clinic and a urine dipstick showed urinary tract infection. I do not have access to this test result. Because the patient states that her symptoms were more severe than just a mild urinary tract infection including chills, body aches and back pain, she came to the emergency department for evaluation and management before even filling the prescription given to her to treat a urinary tract infection. Patient denies chest pain. Patient denies cough. Patient has a history of anxiety, depression, migraine headaches, hypertension and is on lithium for for depression Timing/Duration: today Quality: aching (Body aches) Abdominal Pain Onset Location: flank (Bilateral flank) Pain Radiation: no radiation Severity of Pain-Max: moderate Severity of Pain-Current: moderate Modifying Factors: Improves With: nothing Associated Symptoms: back, fever/chills, other Previous symptoms: no prior history, no recent treatment Allergies/Adverse Reactions: Penicillins Allergy (Verified 04/12/25 15:29) Rash Home Medications: [place] Carbonate 1 tab PO DAILY 03/03/24 [History] Venlafaxine HCl [Venlafaxine HCl ER] 2 tab PO DAILY 03/03/24 [History] Lisinopril 10 mg [Zestril 10 MG] 10 mg PO DAILY 03/16/25 [History] Metoprolol Succinate 25 mg Xl* [Toprol-Xl 25MG Tablets] 25 mg PO DAILY 03/16/25 [History] cloNIDine HCL [Clonidine HCl] 0.3 mg PO DAILY PRN 03/16/25 [History] Hx Tetanus, Diphtheria Vaccination/Date Given: Yes Hx Influenza Vaccination/Date Given: Yes Hx Pneumococcal Vaccination/Date Given: No Travel Risk - International Travel Have you traveled outside of the country in past 3 weeks: No - Emerging Infectious Disease Are you exhibiting symptoms associated with any current EIDs: No Symptoms: Fever - Review of Systems Constitutional: Fever, Chills Eyes: No Symptoms Ears, Nose, & Throat: No Symptoms Respiratory: No Symptoms Cardiac: No Symptoms Abdominal/Gastrointestinal: No Symptoms Genitourinary Symptoms: Flank Pain Musculoskeletal: Back Pain Skin: No Symptoms Neurological: No Symptoms Psychological: No Symptoms Endocrine: No Symptoms Hematologic/Lymphatic: No Symptoms Immunological/Allergic: No Symptoms All Other Systems: Reviewed and Negative - Past Medical History Pertinent Past Medical History: Yes Neurological History: Migraines ENT History: No Pertinent History Cardiac History: No Pertinent History Respiratory History: No Pertinent History Endocrine Medical History: No Pertinent History Musculoskeletal History: No Pertinent History GI Medical History: No Pertinent History History: No Pertinent History Psycho-Social History: Anxiety, Depression Female Reproductive Disorders: No Pertinent History Other Medical History: SCOLIOSIS - Past Surgical History Past Surgical History: Yes Neuro Surgical History: No Pertinent History Cardiac: No Pertinent History Respiratory: No Pertinent History Gastrointestinal: Cholecystectomy Genitourinary: No Pertinent History Musculoskeletal: Other Female Surgical History: Section, Tubal Ligation Other Surgical History: gastric sleeve, KNEE SURGERY (2017) - Female History Hx Last Menstrual Period: beginning of February 2024 - Social History Smoking Status: Never smoker How long have you smoked: 3 Exposure to second hand smoke: Yes Drug Use: marijuana Patient Lives Alone: No - Social Determinants of Health Will the patient participate in the screening: Declined to provide - Nursing Vital Signs Nursing Vital Signs: Initial Vital Signs Temperature 97.8 F 04/12/25 15:52 Pulse Rate 114 H 04/12/25 15:52 Respiratory Rate 20 04/12/25 15:52 Blood Pressure 138/96 04/12/25 15:52 O2 Sat by Pulse Oximetry 113 H 04/12/25 15:52 Pain Scale Pain Intensity 5 - Physical Exam General Appearance: no apparent distress, alert, anxiety Eye Exam: PERRL/EOMI, eyes nml inspection Ears, Nose, Throat Exam: normal ENT inspection, moist mucous membranes Neck Exam: normal inspection, non-tender, supple, full range of motion Respiratory Exam: normal breath sounds, lungs clear, respiratory distress, No chest tenderness Cardiovascular Exam: normal heart sounds, normal peripheral pulses, tachycardia Gastrointestinal/Abdomen Exam: soft, normal bowel sounds, tenderness Pelvic Exam: not done Rectal Exam: not done Back Exam: normal inspection, normal range of motion, CVA tenderness Extremity Exam: normal inspection, normal range of motion, pelvis stable Neurologic Exam: alert, oriented x 3, cooperative, first helper II-XII nml as tested, nml cerebellar function, nml station & gait, sensation nml Skin Exam: normal color, warm, dry Lymphatic Exam: adenopathy SpO2 Interpretation: normal O2 Delivery: Room Air - Course Nursing assessment & vital signs reviewed: Yes Ordered Tests: Active Orders 24 hr Category Date Time Status IV Insertion STAT Care 04/12/25 16:13 Active ABDOMEN AND PELVIS W/0 CONTRAS [CT] Stat Exams 04/12/25 16:13 Completed AMYLASE Stat Lab 04/12/25 16:20 Completed CBC W DIFF Stat Lab 04/12/25 16:20 Completed CMP Stat Lab 04/12/25 16:20 Completed CULTURE,URINE Stat Lab 04/12/25 17:51 Received LIPASE Stat Lab 04/12/25 16:20 Completed Lactic Acid Stat Lab 04/12/25 16:28 Completed Manual Differential NC Stat Lab 04/12/25 16:20 Completed UA W/RFX UR CULTURE Stat Lab 04/12/25 17:51 Completed Medication Summary Discontinued Medications Generic Name Dose Route Start Last Admin Trade Name Freq PRN Reason Stop Dose Admin Sodium Chloride 1,000 mls @ 999 mls/hr 04/12/25 16:13 04/12/25 16:18 Sodium Chloride 0.9% 1000 Ml IV 04/12/25 17:13 999 mls/hr .Q1H1M STA Administration Sodium Chloride Confirm 04/12/25 16:16 Sodium Chloride 0.9% 1000 Ml Administered 04/12/25 16:17 Dose 1,000 mls @ ud .ROUTE .K-MED ONE Lab/Rad Data: Laboratory Result Diagrams 04/12/25 16:20 04/12/25 16:20 Laboratory Results 04/12/25 04/12/25 04/12/25 Range/Units 17:51 16:28 16:20 WBC (3.98-10.04) x10^3/uL RBC (3.93-5.22) x10^6/uL Hgb (11.2-15.7) g/dL Hct (34.1-44.9) % MCV (79.4-94.8) fL MCH (25.6-32.2) pg MCHC (32.2-35.5) g/dL RDW (11.7-14.4) % Plt Count (182-369) x10^3/uL MPV (9.4-12.3) fL Sodium 129 L (135-145) mmol/L Potassium 3.8 (3.5-5.1) mmol/L Chloride 97 L (98-107) mmol/L Carbon Dioxide 25 (22-30) mmol/L Anion Gap 11.4 (5-15) MEQ/L BUN 10 (7-17) mg/dL Creatinine 0.80 (0.52-1.04) mg/dL Estimated GFR 101.6 ML/MIN Glucose 97 (74-106) mg/dL Lactic Acid 0.9 (0.4-2.0) Calcium 9.1 (8.4-10.2) mg/dL Total Bilirubin 1.40 H (0.2-1.3) mg/dL AST 26 (14-36) U/L ALT 17 (0-35) U/L Alkaline Phosphatase 155 H (38-126) U/L Serum Total Protein 7.5 (6.3-8.2) g/dL Albumin 4.0 (3.5-5.0) g/dL Amylase 47 (30-110) U/L Lipase 63 (23-300) U/L Urine Color Yellow (Yellow) Urine Appearance Cloudy A (Clear) Urine pH 6.5 (4.6-8.0) Ur Specific [place] 1.010 (1.005-1.030) Urine Protein Negative (Negative) Urine Glucose (UA) Negative (Negative) mg/dL Urine Ketones Negative (Negative) Urine Blood NHT (Negative) Urine Nitrite Positive A (Negative) Urine Bilirubin Negative (Negative) Urine Urobilinogen 1.0 A (0.2) mg/dL Ur Leukocyte Esterase Moderate A (Negative) U Hyaline Cast (Auto) 3-5 A (0-2) /LPF Urine Microscopic RBC 0-2 (0-5) /HPF Urine Microscopic WBC >100 A (0-5) /HPF Ur Epithelial Cells Rare (None Seen) /HPF Urine Bacteria Many A (None Seen) /HPF Urine Culture Reflexed YES (NO) 04/12/25 Range/Units 16:20 WBC 6.4 (3.98-10.04) x10^3/uL RBC 4.69 (3.93-5.22) x10^6/uL Hgb 14.1 (11.2-15.7) g/dL Hct 42.1 (34.1-44.9) % MCV 89.8 (79.4-94.8) fL MCH 30.1 (25.6-32.2) pg MCHC 33.5 (32.2-35.5) g/dL RDW 15.2 H (11.7-14.4) % Plt Count 177 L (182-369) x10^3/uL MPV 9.8 (9.4-12.3) fL Sodium (135-145) mmol/L Potassium (3.5-5.1) mmol/L Chloride (98-107) mmol/L Carbon Dioxide (22-30) mmol/L Anion Gap (5-15) MEQ/L BUN (7-17) mg/dL Creatinine (0.52-1.04) mg/dL Estimated GFR ML/MIN Glucose (74-106) mg/dL Lactic Acid (0.4-2.0) Calcium (8.4-10.2) mg/dL Total Bilirubin (0.2-1.3) mg/dL AST (14-36) U/L ALT (0-35) U/L Alkaline Phosphatase (38-126) U/L Serum Total Protein (6.3-8.2) g/dL Albumin (3.5-5.0) g/dL Amylase (30-110) U/L Lipase (23-300) U/L Urine Color (Yellow) Urine Appearance (Clear) Urine pH (4.6-8.0) Ur Specific [place] (1.005-1.030) Urine Protein (Negative) Urine Glucose (UA) (Negative) mg/dL Urine Ketones (Negative) Urine Blood (Negative) Urine Nitrite (Negative) Urine Bilirubin (Negative) Urine Urobilinogen (0.2) mg/dL Ur Leukocyte Esterase (Negative) U Hyaline Cast (Auto) (0-2) /LPF Urine Microscopic RBC (0-5) /HPF Urine Microscopic WBC (0-5) /HPF Ur Epithelial Cells (None Seen) /HPF Urine Bacteria (None Seen) /HPF Urine Culture Reflexed (NO) - Progress Progress: improved, re-examined Progress Note: 04/12/25 17:40 My medical decision making and the assignment of moderate complexity is based on review of past medical hx, review med list, review medication allergy list, hpi, and physical examination. work up includes iv, iv hydration, cbc, cmp, amylase, lipase, ua, hcg, and CT scan of the abdomen pelvis without contrast. Differential diagnosis includes but is not limited to UTI, pyelonephritis, ureterolithiasis, pancreatitis, dehydration 04/12/25 18:[address] scan of the abdomen pelvis without contrast was interpreted by the radiologist and I reviewed the impression. The impression is that negative for renal calculus or obstructive uropathy. There is a small hiatal hernia and gastric bypass surgery that was performed since the comparison CT scan in 2019. No free air or free fluid. There is no new or acute findings. 04/12/25 18:38 I interpreted the patient's laboratory data results. Based on laboratory data results, the patient has a significant urinary tract infection. We will provide her with oral Levaquin here and she is to fill her prescription for antibiotics that she has not yet filled. Counseled pt/family regarding: lab results, diagnosis, need for follow-up, rad results Medical Desision Making - Diagnostic Testing Diagnostic test were ordered, analyzed, and reviewed by me: Yes Radiological Interpretation: Reviewed by me, Teleradiologist Report - Risk of complications Low Risk: Low risk of morbidity from additional dx testing or treatment - Departure Departure Disposition: Home Clinical Impression: UTI (urinary tract infection) Condition: Stable Critical Care Time: No Referrals: YFN VENEGAS MD [Primary Care Provider, [facility]] - Follow up/PCP as directed Additional Instructions: Drink plenty of fluids. Take your antibiotics as prescribed. Use Tylenol and ibuprofen for pain control if there are no contraindications to do so. Call your prescribing provider tomorrow, 04/13/2025, to make arrangement for follow- up appointment for further evaluation and management and to be seen in the next 3 to 5 days
[2025-04-12 15:52] VITALS: TEMP 97.8
[2025-04-12 16:13] VITALS: O2SAT 100
[2025-04-12 16:29] LABS: Hematocrit 42.1 % (34.1-44.9); Hemoglobin 14.1 g/dL (11.2-15.7); Mean Corpuscular Hemoglobin 30.1 pg (25.6-32.2); Mean Corpuscular Hgb Concent. 33.5 g/dL (32.2-35.5); Platelet Count 177 x10^3/uL (182-369); Red Blood Count 4.69 x10^6/uL (3.93-5.22); White Blood Count 6.4 x10^3/uL (3.98-10.04)
[2025-04-12 16:48] LABS: Calcium 9.1 mg/dL (8.4-10.2); Carbon Dioxide 25.0 mmol/L (22-30); Creatinine 1 0.8 mg/dL (0.52-1.04); EST GLOMERULAR FILTRATION RATE 101.6 ML/MIN; Glucose 97.0 mg/dL (74-106); Potassium 3.8 mmol/L (3.5-5.1); SGOT/AST 26.0 U/L (14-36); SGPT/ALT 17.0 U/L (0-35); Total Protein 7.5 g/dL (6.3-8.2)
--- NOTE | 2025-04-12 17:06 | XRAY ---
Indication: Flank pain. Chills. Multiple contiguous axial images obtained through the abdomen pelvis without contrast using renal stone protocol. Comparison: August 06, 2018 Lung bases clear with new incidental right base calcified granuloma. Heart not enlarged. New small hiatal hernia. No renal calculus or evidence for obstructive uropathy in either system. Interval gastric bypass surgery. Noncontrasted stomach and bowel loops appear nonobstructed. Normal air-filled appendix. Again fatty liver, tiny hepatic/splenic calcified granulomas, and cholecystectomy. Interval hysterectomy. No free fluid/air. Remaining liver, pancreas, spleen, adrenal glands, kidneys, ureters, bladder, and aorta are unremarkable for noncontrast exam. Osseous structures intact. Impression: 1. Again negative renal calculus or evidence for obstructive uropathy. 2. New small hiatal hernia and gastric bypass surgery. 3. Incidental chronic findings including fatty liver and old granulomatous disease. 4. Remaining CT abdomen/pelvis without contrast exam is negative.
[2025-04-12 18:12] VITALS: BP 134/99; PULSE 110; RESP 17
[2025-04-12 18:33] LABS: Glucose, Urine Negative (Negative); Protein,Urine Dip Negative (Negative); RBC 0-2 /HPF (0-5); WBC >100 /HPF (0-5)
[2025-04-12] MEDS ORDERED: Levofloxacin 500 MG Tablet ONE (18:39)
[2025-04-12] MEDS: Levofloxacin 500 MG Tablet PO ONE (18:40)
[2025-04-12 20:31] LABS: BAND 12 % (0.0-2.0); Macrocytosis 1+; Total Cells Counted 100
== END 2025-04-12 18:52 | disposition home or self-care (01) ==
LOC: ED 15:22
DX: N39.0 Urinary tract infection, site not specified (principal); R10.A3 Flank pain, bilateral; M79.10 Myalgia, unspecified site; Z79.899 Other long term (current) drug therapy